=== PATIENT | male | born 1935 | race Caucasian/White ===

== ENCOUNTER 2022-07-11 12:19 | Inpatient (IN) ==
[2022-07-11 13:11] LABS: Basophils # (auto) 0.04 K/uL (0-0.2); Basophils % (auto) 0.3 %; Eosinophils # (auto) 0.01 K/uL (0-0.50); Eosinophils % (auto) 0.1 %; Hematocrit (blood only) 31.3 % (40.1-51.0); Hemoglobin 10.2 g/dl (14.0-18.0); Immature Granulocytes # (auto) 0.06 K/uL (0.00-0.02); Immature Granulocytes % (auto) 0.5 %; Lymphocytes # (auto) 0.74 K/uL (1.2-3.4); Lymphocytes % (auto) 6.4 %; Mean Corpuscular Hemoglobin 30.4 pg (25.0-34.0); Mean Corpuscular Hgb Conc 32.6 g/dL (32.0-36.0); Mean Corpuscular Volume 93.4 fL (80.0-100.0); Mean Platelet Volume 10.4 fL (9.4-12.4); Monocytes # (auto) 1.07 K/uL (0.24-0.82); Monocytes % (auto) 9.3 %; Neutrophils # (auto) 9.62 K/uL (1.4-6.5); Neutrophils % (auto) 83.4 %; Platelet Count 390 K/uL (130-400); RDW Coefficient of Variation 15.6 % (11.5-14.5); RDW Standard Deviation 53.4 fL (36.4-46.3); Red Blood Count 3.35 M/uL (4.63-6.08); White Blood Count 11.54 K/ul (4.8-10.8)
--- NOTE | 2022-07-11 13:20 | Emergency Department Note ---
History of Present Illness General Chief Complaint: Illness Stated Complaint: CHEST PAIN, SOB, COUGH Time Seen by Provider: 07/11/22 12:33 History of Present Illness Provider Complaint: shortness of breath and cough Onset (ago): day(s) (2) Severity: severe Consistency/Duration: + progressively worsening Relieved By: + oxygen Exacerbated By: + exertion and + coughing Associated symptoms: + cough and + chest congestion; no chest pain, no wheezing, no orthopnea, no polyuria, no palpitations, no diaphoresis or no abdominal pain Treatment prior to arrival: oxygen and bronchodilator Related Data Home oxygen amount: none Home Medications Medication Instructions Recorded Confirmed Type alfuzosin 10 mg tablet,extended 10 mg PO DAILY 07/11/22 07/11/22 History release 24 hr allopurinol 100 mg tablet 100 mg PO DAILY 07/11/22 07/11/22 History amlodipine 5 mg tablet 5 mg PO DAILY 07/11/22 07/11/22 History cetirizine 10 mg tablet 10 mg PO DAILY 07/11/22 07/11/22 History clonidine HCl 0.1 mg tablet 0.1 mg PO BID 07/11/22 07/11/22 History ezetimibe 10 mg tablet 10 mg PO DAILY 07/11/22 07/11/22 History lisinopril 40 mg tablet 40 mg PO DAILY 07/11/22 07/11/22 History meclizine 25 mg tablet 25 mg PO TID PRN Dizziness 07/11/22 07/11/22 History metoprolol succinate 50 mg 25 mg PO DAILY 07/11/22 07/11/22 History tablet,extended release 24 hr nitroglycerin 0.4 mg sublingual 0.4 mg sublingual Q5W PRN Chest 07/11/22 07/11/22 History tablet Pain zolpidem 10 mg tablet 10 mg PO HS 07/11/22 07/11/22 History Allergies Allergy/AdvReac Type Severity Reaction Status Date / Time No Known Allergies Allergy Unverified 07/11/22 16:43 Past Med/Surg History Medical History BPH (benign prostatic hyperplasia) CAD (coronary artery disease) HLD (hyperlipidemia) HTN (hypertension) Surgical History H/O knee surgery S/P CABG (coronary artery bypass graft) Family History Mother Alzheimer disease Father Hypertension Social History Smoking Status: Former smoker Age Quit Using Tobacco: 28; Smoking End Date: 50 years ago; Number of Years Since Quit: 50; Hx Alcohol Use: No Hx Substance Use: No Preferred Language: Haitian Communication Ability: Effective Instructor Nurse Required: No Beliefs That Will Affect Care: Restoration Current Living Situation: Spouse Current Living Situation Comment: home with Feels Safe at Home: Yes Safety Concerns: Feels Safe At This Time Assistive Devices: Cane Review of Systems A total of 10 systems reviewed and were otherwise negative Physical Exam Vital Signs: Vital Signs - 24 hr 07/11/22 12:42 07/11/22 13:16 07/11/22 13:00 Temperature 37.3 C Temperature Source Oral Pulse Rate 77 83 78 Pulse Rhythm Regular Regular Pulse Strength Normal Respiratory Rate 20 20 22 Respiratory Effort / Characteristics Spontaneous Access ory Muscle Use Respiratory Depth Normal Respiratory Patter n Regular Blood Pressure 173/73 H Blood Pressure Mila n 106 Blood Pressure Pos ition Lying Pulse Oximetry 95 95 95 Oxygen Delivery Me thod Nasal Cannula Nasal Cannula Nasal Cannula Oxygen Flow Rate 5 5 5 Sepsis Recent Feve r Within 48 Hours No Sepsis New/Unexpla ined Change in Men taty Status No Sepsis Action Take n by Nursing No Action Required 07/11/22 13:15 07/11/22 13:30 07/11/22 13:45 Temperature Temperature Source Pulse Rate 78 77 77 Pulse Rhythm Pulse Strength Respiratory Rate 26 H Respiratory Effort / Characteristics Respiratory Depth Respiratory Patter n Blood Pressure Blood Pressure Mila n Blood Pressure Pos ition Pulse Oximetry 95 95 93 Oxygen Delivery Me thod Nasal Cannula Nasal Cannula Nasal Cannula Oxygen Flow Rate 5 5 5 Sepsis Recent Feve r Within 48 Hours Sepsis New/Unexpla ined Change in Men taty Status Sepsis Action Take n by Nursing 07/11/22 14:00 07/11/22 14:15 07/11/22 14:30 Temperature Temperature Source Pulse Rate 75 74 75 Pulse Rhythm Pulse Strength Respiratory Rate 23 25 H 19 Respiratory Effort / Characteristics Respiratory Depth Respiratory Patter n Blood Pressure Blood Pressure Mila n Blood Pressure Pos ition Pulse Oximetry 95 95 93 Oxygen Delivery Me thod Nasal Cannula Nasal Cannula Nasal Cannula Oxygen Flow Rate 5 5 5 Sepsis Recent Feve r Within 48 Hours Sepsis New/Unexpla ined Change in Men taty Status Sepsis Action Take n by Nursing Physical Exam: Physical Exam GENERAL: He is oriented to person, place, and time. He appears well-developed and well-nourished. He does not appear distressed. HENT: Exam performed. - Head: Normocephalic and atraumatic. - Right Ear: External ear normal. No mastoid tenderness. - Left Ear: External ear normal. No mastoid tenderness. - Mouth/Throat: The oropharynx is clear and moist. No trismus in the jaw. No dental abscesses or uvula swelling. No oropharyngeal exudate or tonsillar abscesses. EYES: Conjunctivae and EOM are normal. Pupils are equal, round, and reactive to light. Right eye exhibits no discharge. Left eye exhibits no discharge. No scleral icterus. NECK: Normal range of motion. Neck supple. No JVD present. No spinous process tenderness present. No carotid bruit present. No rigidity. No tracheal deviation and normal range of motion present. No Brudzinski's sign and no Kernig's sign noted. CV: Normal rate, regular rhythm, normal heart sounds and intact distal pulses. There is no peripheral edema. Palpable radial pulses bue. PULM/CHEST: Rhonchi bilaterally. ABD: The abdomen is soft. Bowel sounds are normal. He has no distension. No mass is present. There is no tenderness. There is no rebound, no guarding, no Sheikh's sign and no tenderness at McBurney's point. Rovsig negative. MUSC/SKEL: Normal range of motion. There is no peripheral edema, tenderness or deformity. LYMPH: No cervical adenopathy. NEURO: He is alert and oriented to person, place, and time. He has normal strength. No cranial nerve deficit or sensory deficit. Coordination and gait normal. GCS eye subscore is 4. GCS verbal subscore is 5. GCS motor subscore is 6. Cerebellar tests wnl. SKIN: Skin is warm and dry. He is not diaphoretic. PSYCH: He has a normal mood and affect. Behavior is normal. Judgment and thought content normal. Course Course 1233: The patient was evaluated in room A4. A complete history and physical exam was performed Cardiac monitoring: An order was placed for continuous cardiac monitoring. The monitor shows a rate of 80 with sinus rhythm Patient was found to be hypoxic on room air. Patient oxygen saturation did remove with supplemental oxygen via nasal cannula. 1440: Vital signs stable on supplemental oxygen. Labs show white blood cell count 11.5 hemoglobin 10.2. ABG shows venous pH of 7.3 venous PCO2 of 41. Creatinine elevated at 1.9. Magnesium 1.5. Troponin 1008.4 proBNP 3806. Chest x-ray shows pulmonary edema and cardiomegaly. Patchy right lung and left basilar airspace opacity favoring alveolar edema. Patient is COVID-positive. Patient was treated with Decadron 6 mg IV push. [facility] Patient currently reporting no chest pain. Administered Medications Discontinued Medications Albuterol (Albut/Ipratrop 3mg/0.5mg Neb 3 Ml Vial) 3 ml NEB NOW STA; Protocol Stop: 07/11/22 16:18 Last Admin: 07/11/22 16:31 Dose: 3 ml Documented By: MEAGHAN Furosemide (Furosemide 40 Mg/4 Ml Vial) 40 mg IV ONE ONE Stop: 07/11/22 16:18 Last Admin: 07/11/22 16:32 Dose: 40 mg Documented By: MEAGHAN Dexamethasone 6 mg/ Syringe 1.5 mls @ 1 mls/min IV ONE ONE Stop: 07/11/22 14:31 Last Admin: 07/11/22 16:14 Dose: 1 mls/min Documented By: MEAGHAN Medical Decision Making Laboratory Data Result diagrams: 07/11/22 12:55 07/11/22 12:55 Lab Results 07/11/22 07/11/22 07/11/22 Range/Units 12:52 12:55 12:55 WBC 11.54 H (4.8-10.8) K/ul RBC 3.35 L (4.63-6.08) M/uL Hgb 10.2 L (14.0-18.0) g/dl Hct 31.3 L (40.1-51.0) % MCV 93.4 (80.0-100.0) fL MCH 30.4 (25.0-34.0) pg MCHC 32.6 (32.0-36.0) g/dL RDW Std Deviation 53.4 H (36.4-46.3) fL RDW Coeff of Ambrose 15.6 H (11.5-14.5) % Plt Count 390 (130-400) K/uL MPV 10.4 (9.4-12.4) fL Immature Gran % (Auto) 0.5 % Neut % (Auto) 83.4 % Lymph % (Auto) 6.4 % Mcdonough % (Auto) 9.3 % Eos % (Auto) 0.1 % Baso % (Auto) 0.3 % Neut # (Auto) 9.62 H (1.4-6.5) K/uL Lymph # (Auto) 0.74 L (1.2-3.4) K/uL Mcdonough # (Auto) 1.07 H (0.24-0.82) K/uL Eos # (Auto) 0.01 (0-0.50) K/uL Baso # (Auto) 0.04 (0-0.2) K/uL Immature Gran # (Auto) 0.06 H (0.00-0.02) K/uL PT 12.4 H (9.0-12.0) Seconds INR 1.2 H (0.9-1.1) APTT 27.1 (21.0-31.0) Seconds PTT Ratio 1.0 VBG pH (7.36-7.41) VBG pCO2 (38-50) mmHg VBG pO2 mmHg VBG HCO3 mmol/L VBG O2 Saturation % VBG Base Excess mEq/L Sodium (136-145) mmol/L Potassium (3.5-5.1) mmol/L Chloride (98-107) mmol/L Carbon Dioxide (21-32) mmol/L Anion Gap (3-11) BUN (6-23) mg/dl Creatinine (0.6-1.4) mg/dl Est Cr Clr Drug Dosing ml/min Est GFR ( Amer) ml/min Est GFR (Non-Af Amer) ml/min BUN/Creatinine Ratio (10-20) Glucose (70-99(Fasting)) mg/dl Calcium (8.5-10.1) mg/dl Magnesium (1.7-2.4) mg/dl Troponin I High Sens (0-20) pg/ml B-Natriuretic Peptide (0-100) pg/ml Procalcitonin (0-0.5) ng/ml SARS-CoV-2 (PCR) POSITIVE A* (Negative) Influenza Type A (PCR) Negative (Neg) Influenza Type B (PCR) Negative (Neg) RSV (RT-PCR) Negative (Neg) 07/11/22 07/11/22 07/11/22 Range/Units 12:55 12:55 13:08 WBC (4.8-10.8) K/ul RBC (4.63-6.08) M/uL Hgb (14.0-18.0) g/dl Hct (40.1-51.0) % MCV (80.0-100.0) fL MCH (25.0-34.0) pg MCHC (32.0-36.0) g/dL RDW Std Deviation (36.4-46.3) fL RDW Coeff of Ambrose (11.5-14.5) % Plt Count (130-400) K/uL MPV (9.4-12.4) fL Immature Gran % (Auto) % Neut % (Auto) % Lymph % (Auto) % Mcdonough % (Auto) % Eos % (Auto) % Baso % (Auto) % Neut # (Auto) (1.4-6.5) K/uL Lymph # (Auto) (1.2-3.4) K/uL Mcdonough # (Auto) (0.24-0.82) K/uL Eos # (Auto) (0-0.50) K/uL Baso # (Auto) (0-0.2) K/uL Immature Gran # (Auto) (0.00-0.02) K/uL PT (9.0-12.0) Seconds INR (0.9-1.1) APTT (21.0-31.0) Seconds PTT Ratio VBG pH 7.30 L (7.36-7.41) VBG pCO2 41 (38-50) mmHg VBG pO2 27 mmHg VBG HCO3 20 mmol/L VBG O2 Saturation < 60.0 % VBG Base Excess -5.9 mEq/L Sodium 141 (136-145) mmol/L Potassium 5.0 (3.5-5.1) mmol/L Chloride 113 H (98-107) mmol/L Carbon Dioxide 19 L (21-32) mmol/L Anion Gap 9 (3-11) BUN 42 H (6-23) mg/dl Creatinine 1.90 H (0.6-1.4) mg/dl Est Cr Clr Drug Dosing 30.5 ml/min Est GFR ( Amer) 35.7 ml/min Est GFR (Non-Af Amer) 30.8 ml/min BUN/Creatinine Ratio 22.1 H (10-20) Glucose 138 H (70-99(Fasting)) mg/dl Calcium 8.8 (8.5-10.1) mg/dl Magnesium 1.5 L (1.7-2.4) mg/dl Troponin I High Sens 1008.4 H* (0-20) pg/ml B-Natriuretic Peptide (0-100) pg/ml Procalcitonin 0.06 (0-0.5) ng/ml SARS-CoV-2 (PCR) (Negative) Influenza Type A (PCR) (Neg) Influenza Type B (PCR) (Neg) RSV (RT-PCR) (Neg) 07/11/22 Range/Units 15:33 WBC (4.8-10.8) K/ul RBC (4.63-6.08) M/uL Hgb (14.0-18.0) g/dl Hct (40.1-51.0) % MCV (80.0-100.0) fL MCH (25.0-34.0) pg MCHC (32.0-36.0) g/dL RDW Std Deviation (36.4-46.3) fL RDW Coeff of Ambrose (11.5-14.5) % Plt Count (130-400) K/uL MPV (9.4-12.4) fL Immature Gran % (Auto) % Neut % (Auto) % Lymph % (Auto) % Mcdonough % (Auto) % Eos % (Auto) % Baso % (Auto) % Neut # (Auto) (1.4-6.5) K/uL Lymph # (Auto) (1.2-3.4) K/uL Mcdonough # (Auto) (0.24-0.82) K/uL Eos # (Auto) (0-0.50) K/uL Baso # (Auto) (0-0.2) K/uL Immature Gran # (Auto) (0.00-0.02) K/uL PT (9.0-12.0) Seconds INR (0.9-1.1) APTT (21.0-31.0) Seconds PTT Ratio VBG pH (7.36-7.41) VBG pCO2 (38-50) mmHg VBG pO2 mmHg VBG HCO3 mmol/L VBG O2 Saturation % VBG Base Excess mEq/L Sodium (136-145) mmol/L Potassium (3.5-5.1) mmol/L Chloride (98-107) mmol/L Carbon Dioxide (21-32) mmol/L Anion Gap (3-11) BUN (6-23) mg/dl Creatinine (0.6-1.4) mg/dl Est Cr Clr Drug Dosing ml/min Est GFR ( Amer) ml/min Est GFR (Non-Af Amer) ml/min BUN/Creatinine Ratio (10-20) Glucose (70-99(Fasting)) mg/dl Calcium (8.5-10.1) mg/dl Magnesium (1.7-2.4) mg/dl Troponin I High Sens (0-20) pg/ml B-Natriuretic Peptide 3806 H (0-100) pg/ml Procalcitonin (0-0.5) ng/ml SARS-CoV-2 (PCR) (Negative) Influenza Type A (PCR) (Neg) Influenza Type B (PCR) (Neg) RSV (RT-PCR) (Neg) Imaging Data Radiologist's Impression: Chest X-Ray 07/11/22 12:52 XR chest 1V portable CLINICAL HISTORY: Cough. Chest pain. Shortness of breath. COMPARISON STUDY: No previous studies for comparison. FINDINGS: There are median sternotomy wires. Moderate cardiomegaly is noted. There is no pneumothorax. Small bilateral pleural effusions are noted. Interstitial thickening represents pulmonary edema. There may be patchy right lung and left basilar airspace opacities. IMPRESSION: 1. Interstitial pulmonary edema with small bilateral pleural effusions. Cardiomegaly. 2. Patchy right lung and left basilar airspace opacity. This could reflect alveolar edema. A superimposed infectious process is considered less likely. Radiographic follow-up is recommended. ACT 112: Negative or not required by law. Electronically signed by: Clinton Cuba M.D. 07/11/2022 1:38 PM ECG Data Interpretation: Sinus rhythm with a rate of 80. IN 264 QRS 148 QTC 479. Left bundle branch block present. sgarbosa negative [facility] Narrative 1233: The patient was evaluated in room A4. A complete history and physical exam was performed Cardiac monitoring: An order was placed for continuous cardiac monitoring. The monitor shows a rate of 80 with sinus rhythm Patient was found to be hypoxic on room air. Patient oxygen saturation did remove with supplemental oxygen via nasal cannula. 1440: Vital signs stable on supplemental oxygen. Labs show white blood cell count 11.5 hemoglobin 10.2. ABG shows venous pH of 7.3 venous PCO2 of 41. C reatinine elevated at 1.9. Magnesium 1.5. Troponin 1008.4 proBNP 3806. Chest x-ray shows pulmonary edema and cardiomegaly. Patchy right lung and left basilar airspace opacity favoring alveolar edema. Patient is COVID-positive. Patient was treated with Decadron 6 mg IV push. [facility]. Patient currently reporting no chest pain. Impression & Plan Hypoxia, COVID-19 Critical Care Time Total Critical Care Time: 40 I have personally spent greater than 40 minutes of critical care time in the direct management of this patient. This includes bedside care, interpretation of diagnostic studies, and testing, discussion with consultants, patient, and family members, and other required patient management activities. This 40 minutes is in excess of all separately billable procedures. Discharge Plan Visit Data Chief Complaint: Illness Stated Complaint: CHEST PAIN, SOB, COUGH ED Provider: Kuldeep Juarez Discharge Problem: Hypoxia, COVID-19 Patient Disposition: Admitted As Inpatient Discharge Instructions Interventions: ED Discharge Assessment Last Done: 07/11/22 16:45
[2022-07-11 13:23] LABS: INR 1.2 (0.9-1.1); Partial Thromboplastin Time 27.1 Seconds (21.0-31.0); Prothrombin Time 12.4 Seconds (9.0-12.0)
--- NOTE | 2022-07-11 13:39 | XRay Report ---
XR chest 1V portable CLINICAL HISTORY: Cough. Chest pain. Shortness of breath. COMPARISON STUDY: No previous studies for comparison. FINDINGS: There are median sternotomy wires. Moderate cardiomegaly is noted. There is no pneumothorax . Small bilateral pleural effusions are noted. Interstitial thickening represents pulmonary edema. Th ere may be patchy right lung and left basilar airspace opacities. IMPRESSION: 1. Interstitial pulmonary edema with small bilateral pleural effusions. Cardiomegaly. 2. Patchy right lung and left basilar airspace opacity. This could reflect alveolar edema. A superimp osed infectious process is considered less likely. Radiographic follow-up is recommended. ACT 112: Negative or not required by law. Electronically signed by: Clinton Cuba M.D. 07/11/2022 1:38 PM
[2022-07-11 13:46] LABS: Base Excess VBG -5.9 mEq/L; HCO3 VBG 20 mmol/L; Oxygen Saturation VBG < 60.0 %; PCO2 VBG 41 mmHg (38-50); PO2 VBG 27 mmHg
[2022-07-11 13:46] LABS: Troponin I High Sensitivity 1008.4 pg/ml (0-20)
[2022-07-11 14:01] LABS: BUN Creatinine Ratio 22.1 (10-20); Calcium 8.8 mg/dl (8.5-10.1); Creatinine Clr Calc Pharmacy 30.5 ml/min; Est GFR (African American) 35.7 ml/min; Est GFR (Non-African American) 30.8 ml/min; Magnesium 1.5 mg/dl (1.7-2.4)
[2022-07-11 14:27] LABS: Influenza A virus by PCR Negative (Neg); Influenza B virus by PCR Negative (Neg); RSV by PCR Negative (Neg)
[2022-07-11 14:29] LABS: SARS CoV2 RNA(COVID-19) InHosp POSITIVE (Negative)
[2022-07-11] MEDS ORDERED: dexAMETHasone 6 MG in SYRINGE 0 ML IV ONE (14:30)
[2022-07-11] MEDS ORDERED: FUROSEMIDE 40 MG/4 ML VIAL IV ONE ×2 (16:17→17:53)
[2022-07-11] MEDS ORDERED: ALBUT/IPRATROP 3MG/0.5MG NEB 3 ML VIAL NEB STA (16:17)
[2022-07-11] MEDS ORDERED: NITROGLYCERIN SL 0.4 MG/TAB TAB SL PRN ×2 (17:00→17:53)
--- NOTE | 2022-07-11 17:00 | History & Physical Report ---
Date of Service July 11, 2022 Assessment & Plan (1) Acute respiratory failure with hypoxia: Plan: Multifactorial COVID-19 pneumonia, acute on chronic heart failure Chest x-raybilateral infiltrates BNP elevated to 3800 Pro-Ravin 0.06 Plan; - continue supplemental oxygen as needed and wean off as tolerated to maintain saturation greater than 92% - started on dexamethasone, remdesivir for COVID-19 infection. Started on ceftriaxone and doxycycline to cover for bacterial pneumonia. Might discontinue if patient improves with other treatment. Started on Lasix 40 mg for volume overload. Will titrate diuretics based on response (2) Elevated troponin: Plan: Patient has a history of CAD status post CABG in 2007 High sensitivity elevation likely due to demand ischemia versus NSTEMI EKG shows sinus rhythm with first-degree AV block and LBBB Plan is to trend troponin, consult cardiology, obtain echo. If troponin trends; will start anticoagulation. Continue aspirin, Lipitor and home beta-lila (3) NEY (acute kidney injury): Plan: Creatinine is 1.90. BUN42 Unsure was the patient baseline is likely cardiorenal syndrome Plan; Obtain urinalysis, urine osmolarity, CK total, renal ultrasound. Obtain BMP in a.m.; will consult nephrology if continues to uptrend. -Lisinopril on hold (4) HTN (hypertension): Plan: Continue on home amlodipine, clonidine and metoprolol. Home lisinopril on hold due to NEY (5) HLD (hyperlipidemia): Plan: Started on Lipitor (6) BPH (benign prostatic hyperplasia): Plan: On alfuzosin Plan DVT Heparin full code History of Present Illness Chief Complaint: Cough for 2 days Primary Care Provider: NO PCP Patient is a 86-year-old male with past medical history of CAD status post CABG in 2007, hypertension, hyperlipidemia, BPH presented to the ED with complaint of cough for past 2 days. Patient is from [place], [place] and here in the [facility] for camping with his son. He noticed increased bouts of coughing since last 2 days. The cough is nonproductive, associated with pleuritic chest pain. He denies fever or chills. He does acknowledge that he has been feeling weak since past 2 days as well. He also reports increasing shortness of breath for past 3 to 4 days as well. The shortness of breath is evident on any form of activity. He also complains of chest pain which is aggravated with coughing is nonradiating. He has taken COVID vaccination along with the booster; his booster was in August 2021. As per the patient, he had coronary artery bypass surgery in 2007 for coronary artery disease. 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 He said he had " Nuclear test" 6-month back and the results were normal. He also has a history of hypertension for which he is on amlodipine, lisinopril, clonidine and metoprolol. He lives with his and is able to carry out all the daily activities by himself. He denies smoking cigarette, drinking alcohol or using any other illicit drugs. On presentation to the ED, patient was afebrile, hypertensive and required 5 L of oxygen via nasal cannula., patient was found to be COVID-positive. Chest x- ray was remarkable for bilateral infiltrates. He is EKG showed left bundle branch block; no previous EKG in the system to compare it with. His initial troponin was 1000. Patient was given IV dexamethasone 6 mg for COVID 19 infection and he was admitted to the floors. Allergies Allergy/AdvReac Type Severity Reaction Status Date / Time No Known Allergies Allergy Unverified 07/11/22 16:43 Home Medications Medication Instructions Recorded Confirmed Type alfuzosin 10 mg tablet,extended 10 mg PO DAILY 07/11/22 07/11/22 History release 24 hr allopurinol 100 mg tablet 100 mg PO DAILY 07/11/22 07/11/22 History amlodipine 5 mg tablet 5 mg PO DAILY 07/11/22 07/11/22 History cetirizine 10 mg tablet 10 mg PO DAILY 07/11/22 07/11/22 History clonidine HCl 0.1 mg tablet 0.1 mg PO BID 07/11/22 07/11/22 History ezetimibe 10 mg tablet 10 mg PO DAILY 07/11/22 07/11/22 History lisinopril 40 mg tablet 40 mg PO DAILY 07/11/22 07/11/22 History meclizine 25 mg tablet 25 mg PO TID PRN Dizziness 07/11/22 07/11/22 History metoprolol succinate 50 mg 25 mg PO DAILY 07/11/22 07/11/22 History tablet,extended release 24 hr nitroglycerin 0.4 mg sublingual 0.4 mg sublingual Q5W PRN Chest 07/11/22 07/11/22 History tablet Pain zolpidem 10 mg tablet 10 mg PO HS 07/11/22 07/11/22 History Past Med/Surg History Medical History (Updated 07/11/22 @ 16:53 by Wilder Pressley MD) BPH (benign prostatic hyperplasia) CAD (coronary artery disease) HLD (hyperlipidemia) HTN (hypertension) Surgical History (Updated 07/11/22 @ 16:48 by Wilder Pressley MD) H/O knee surgery S/P CABG (coronary artery bypass graft) Family History (Updated 07/11/22 @ 16:47 by Wilder Pressley MD) Mother Alzheimer disease Father Hypertension Social History (Updated 07/11/22 @ 16:46 by Wilder Pressley MD) Smoking Status: Former smoker Age Quit Using Tobacco: 28; Number of Years Since Quit: 50; Hx Alcohol Use: No Hx Substance Use: No Feels Safe at Home: Yes Immunizations: Had COVID vaccination in October and November 2020 and booster in 2020 Review of Systems Review of Systems: All systems reviewed & are unremarkable except as noted in Subjective Physical Exam Physical Exam: Constitutional: Alert, oriented x3; in respiratory distress Neck: trachea midline, no thyromegaly normal visual inspection Respiratory: Bilateral crackles up to mid lung henderson Cardiovascular: S1-S2 no murmur appreciated Chest: normal inspection of chest. Scar present Abdomen: Soft, nontender Musculoskeletal: no cyanosis or clubbing, extremities motor strength 5/5 Skin: bilateral 1+ pitting edema present Neurologic: PERRL, EOMI, accommodation nl, no face palsy, no dysarthria CN's II- XI intact bilaterally and moves all extremities Psychiatric: A+Ox3, euthymic affect Lymphatic: no cervical or axillary lymphadenopathy : deferred Results & Data Results & Data ([facility]) Vital Signs (Past 12 Hours) Vital Signs Temp Pulse Resp BP Pulse Ox O2 Del Method O2 Flow Rate 07/11/22 14:30 75 19 93 Nasal Cannula 5 07/11/22 14:15 74 25 H 95 Nasal Cannula 5 07/11/22 14:00 75 23 95 Nasal Cannula 07/11/22 13:45 77 26 H 93 Nasal Cannula 5 07/11/22 13:30 77 95 Nasal Cannula 5 07/11/22 13:15 78 95 Nasal Cannula 5 07/11/22 13:00 78 22 95 Nasal Cannula 5 07/11/22 13:16 83 20 95 Nasal Cannula 5 07/11/22 12:42 37.3 C 77 20 173/73 H 95 Nasal Cannula 5 Laboratory Results Laboratory Results WBC 11.54 K/ul (4.8-10.8) H 07/11/22 12:55 RBC 3.35 M/uL (4.63-6.08) L 07/11/22 12:55 Hgb 10.2 g/dl (14.0-18.0) L 07/11/22 12:55 Hct 31.3 % (40.1-51.0) L 07/11/22 12:55 MCV 93.4 fL (80.0-100.0) 07/11/22 12:55 MCH 30.4 pg (25.0-34.0) 07/11/22 12:55 MCHC 32.6 g/dL (32.0-36.0) 07/11/22 12:55 RDW Std Deviation 53.4 fL (36.4-46.3) H 07/11/22 12:55 RDW Coeff of Ambrose 15.6 % (11.5-14.5) H 07/11/22 12:55 Plt Count 390 K/uL (130-400) 07/11/22 12:55 MPV 10.4 fL (9.4-12.4) 07/11/22 12:55 Immature Gran % (Auto) 0.5 % 07/11/22 12:55 Neut % (Auto) 83.4 % 07/11/22 12:55 Lymph % (Auto) 6.4 % 07/11/22 12:55 [place] % (Auto) 9.3 % 07/11/22 12:55 Eos % (Auto) 0.1 % 07/11/22 12:55 Baso % (Auto) 0.3 % 07/11/22 12:55 Neut # (Auto) 9.62 K/uL (1.4-6.5) H 07/11/22 12:55 Lymph # (Auto) 0.74 K/uL (1.2-3.4) L 07/11/22 12:55 [place]att # (Auto) 1.07 K/uL (0.24-0.82) H 07/11/22 12:55 Eos # (Auto) 0.01 K/uL (0-0.50) 07/11/22 12:55 Baso # (Auto) 0.04 K/uL (0-0.2) 07/11/22 12:55 Immature Gran # (Auto) 0.06 K/uL (0.00-0.02) H 07/11/22 12:55 PT 12.4 Seconds (9.0-12.0) H 07/11/22 12:55 INR 1.2 (0.9-1.1) H 07/11/22 12:55 APTT 27.1 Seconds (21.0-31.0) 07/11/22 12:55 PTT Ratio 1.0 07/11/22 12:55 VBG pH 7.30 (7.36-7.41) L 07/11/22 13:08 VBG pCO2 41 mmHg (38-50) 07/11/22 13:08 VBG pO2 27 mmHg 07/11/22 13:08 VBG HCO3 20 mmol/L 07/11/22 13:08 VBG O2 Saturation < 60.0 % 07/11/22 13:08 VBG Base Excess -5.9 mEq/L 07/11/22 13:08 Sodium 141 mmol/L (136-145) 07/11/22 12:55 Potassium 5.0 mmol/L (3.5-5.1) 07/11/22 12:55 Chloride 113 mmol/L (98-107) H 07/11/22 12:55 Carbon Dioxide 19 mmol/L (21-32) L 07/11/22 12:55 Anion Gap 9 (3-11) 07/11/22 12:55 BUN 42 mg/dl (6-23) H 07/11/22 12:55 Creatinine 1.90 mg/dl (0.6-1.4) H 07/11/22 12:55 Est Cr Clr Drug Dosing 30.5 ml/min 07/11/22 12:55 Est GFR ( Amer) 35.7 ml/min 07/11/22 12:55 Est GFR (Non-Af Amer) 30.8 ml/min 07/11/22 12:55 BUN/Creatinine Ratio 22.1 (10-20) H 07/11/22 12:55 Glucose 138 mg/dl (70-99(Fasting)) H 07/11/22 12:55 Calcium 8.8 mg/dl (8.5-10.1) 07/11/22 12:55 Magnesium 1.5 mg/dl (1.7-2.4) L 07/11/22 12:55 Troponin I High Sens 1008.4 pg/ml (0-20) H* 07/11/22 12:55 B-Natriuretic Peptide 3806 pg/ml (0-100) H 07/11/22 15:33 Procalcitonin 0.06 ng/ml (0-0.5) 07/11/22 12:55 SARS-CoV-2 (PCR) POSITIVE (Negative) A* 07/11/22 12:52 Influenza Type A (PCR) Negative (Neg) 07/11/22 12:52 Influenza Type B (PCR) Negative (Neg) 07/11/22 12:52 RSV (RT-PCR) Negative (Neg) 07/11/22 12:52 Impressions Chest X-Ray 07/11/22 12:52 XR chest 1V portable CLINICAL HISTORY: Cough. Chest pain. Shortness of breath. COMPARISON STUDY: No previous studies for comparison. FINDINGS: There are median sternotomy wires. Moderate cardiomegaly is noted. There is no pneumothorax. Small bilateral pleural effusions are noted. Interstitial thickening represents pulmonary edema. There may be patchy right lung and left basilar airspace opacities. IMPRESSION: 1. Interstitial pulmonary edema with small bilateral pleural effusions. Ca rdiomegaly. 2. Patchy right lung and left basilar airspace opacity. This could reflect alveolar edema. A superimposed infectious process is considered less likely. Radiographic follow-up is recommended. ACT 112: Negative or not required by law. Electronically signed by: Clinton Cuba M.D. 07/11/2022 1:38 PM ECG Additional Comments: Sinus rhythm with first-degree AV block, LBBB present. No previous EKG to compare
[2022-07-11] MEDS ORDERED: HEPARIN SOD (PORCINE) 1000 UNIT/ML IV ONE ×2 (17:53→18:35)
[2022-07-11] MEDS ORDERED: POLYETHYLENE (MIRALAX) 17 GM PACK PO PRN (17:53)
[2022-07-11] MEDS ORDERED: ALUMINUM/MAGNESIUM SUSP 30 ML UDC PO PRN (17:53)
[2022-07-11] MEDS ORDERED: ACETAMINOPHEN 325 MG TAB PO PRN (17:53)
[2022-07-11] MEDS ORDERED: HEPARIN SODIUM/DEXTROSE 25,000 UNITS/500 ML BAG IV SCH (17:53)
[2022-07-11] MEDS ORDERED: MAGNESIUM HYDROXIDE SUSP 30 ML UDC PO PRN (17:53)
[2022-07-11] MEDS ORDERED: ALBUT/IPRATROP 3MG/0.5MG NEB 3 ML VIAL NEB SCH (17:53)
[2022-07-11 18:21] LABS: Alanine Aminotransferase 15 U/L (7-52); Aspartate Aminotransferase 26 U/L (13-39)
--- NOTE | 2022-07-11 18:24 | Ultrasound Report ---
ULTRASOUND KIDNEYS AND BLADDER CLINICAL HISTORY: Acute renal insufficiency. COMPARISON STUDY: No priors. TECHNIQUE: Real-time, grayscale, and color flow sonography of the kidneys and bladder is performed. I mages are reviewed in the transverse and longitudinal planes. FINDINGS: Kidneys: The kidneys demonstrate mild cortical atrophy. Echotexture is normal. The right kidney measu res 11.4 cm in length and the left kidney measures 10.3 cm in length. There is no hydronephrosis. No shadowing renal calculi are identified. Small bilateral renal cysts measure up to 1.5 cm. There is n o sonographic evidence of contour deforming renal mass lesion. No perinephric fluid is identified. Bladder: The bladder wall appears thickened/trabeculated suggesting chronic outlet obstruction. Bilat eral ureteral jets were seen. IMPRESSION: 1. The kidneys demonstrate mild cortical atrophy and are without hydronephrosis. 2. The appearance of the bladder suggests chronic outlet obstruction. ACT 112: Negative or not required by law. Electronically signed by: Henry Coyne M.D. 07/11/2022 6:23 PM
[2022-07-11] MEDS ORDERED: Heparin IV Adult Wt-Based Standard WITH Bolus Protocol IV SCH (18:37)
[2022-07-11] MEDS: ALFUZOSIN HCL 10 MG TAB PO SCH (19:15)
[2022-07-11] MEDS: allopurinoL 100 MG TAB PO SCH (19:16)
[2022-07-11] MEDS: CETIRIZINE HCL 10 MG TABLET PO SCH (19:16)
[2022-07-11] MEDS: amLODIPine BESYLATE 5 MG TAB PO SCH (19:17)
[2022-07-11] MEDS: METOPROLOL SUCC 25MG EXT REL TAB PO SCH (19:18)
[2022-07-11] MEDS ORDERED: REMDESIVIR 200 MG in SODIUM CHLORIDE 0.9% 210 ML IV ONE (19:30)
[2022-07-11] MEDS: HEPARIN SODIUM/DEXTROSE 25,000 UNITS/500 ML BAG IV SCH (19:47)
[2022-07-11] MEDS: DOXYCYCLINE HYCLATE 100 MG CAP PO SCH (21:03)
[2022-07-11] MEDS: cloNIDine HCL 0.1 MG TAB PO SCH (22:24)
[2022-07-11] MEDS: Heparin IV Adult Wt-Based Standard WITH Bolus Protocol IV SCH ×2 (22:42→22:43)
[2022-07-11 22:53] LABS: Appearance Urine Cloudy (Clear); Bacteria Urine Automated Negative (Negative); Bilirubin Urine Negative (Negative); Blood Urine 1+ (Negative); Color Urine Yellow; Glucose Urine UA Negative (Negative); Ketones Urine Negative (Negative); Leukocyte Esterase Urine Trace (Negative); Nitrite Urine Negative (Negative); Protein Urine 2+ (Negative); RBC Urine Automated 0-4 /hpf (0-4); Specific Gravity Urine 1.009 (1.000-1.030); Urobilinogen Urine Negative (Negative)
[2022-07-11 23:08] LABS: Urine Potassium 24.8 mmol/L
[2022-07-11] MEDS: cefTRIAXone SODIUM 2,000 MG in DEXTROSE 5% 50 ML IV SCH (23:13)
[2022-07-12] MEDS: ALBUT/IPRATROP 3MG/0.5MG NEB 3 ML VIAL NEB SCH ×3 (01:28→13:05)
[2022-07-12 02:56] LABS: Basophils # (auto) 0.01 K/uL (0-0.2); Basophils % (auto) 0.1 %; Hematocrit (blood only) 27.6 % (40.1-51.0); Immature Granulocytes # (auto) 0.05 K/uL (0.00-0.02); Immature Granulocytes % (auto) 0.7 %; Lymphocytes % (auto) 7.1 %; Mean Corpuscular Hemoglobin 30.1 pg (25.0-34.0); Mean Corpuscular Hgb Conc 32.6 g/dL (32.0-36.0); Mean Corpuscular Volume 92.3 fL (80.0-100.0); Mean Platelet Volume 10.9 fL (9.4-12.4); Monocytes # (auto) 0.32 K/uL (0.24-0.82); Monocytes % (auto) 4.6 %; Neutrophils # (auto) 6.15 K/uL (1.4-6.5); Neutrophils % (auto) 87.5 %; Platelet Count 310 K/uL (130-400); RDW Coefficient of Variation 15.4 % (11.5-14.5); Red Blood Count 2.99 M/uL (4.63-6.08); White Blood Count 7.03 K/ul (4.8-10.8)
[2022-07-12 03:15] LABS: Albumin Globulin Ratio 1.2 (0.9-2); Albumin Level 3.3 gm/dl (3.4-5.0); BUN Creatinine Ratio 23.4 (10-20); Bilirubin,Total 0.3 mg/dl (0.2-1.0); Calcium 8.2 mg/dl (8.5-10.1); Chol HDL Ratio 2.5 (0-5); Creatinine Clr Calc Pharmacy 28.2 ml/min; Est GFR (African American) 32.6 ml/min; Est GFR (Non-African American) 28.1 ml/min; Globulin 2.7 gm/dl (2.5-4.0); Potassium 4.3 mmol/L (3.5-5.1)
[2022-07-12 03:24] LABS: Partial Thromboplastin Ratio 4.9
[2022-07-12 03:32] LABS: Troponin I High Sensitivity 1480.3 pg/ml (0-20)
--- NOTE | 2022-07-12 05:04 | Electrocardiogram Report ---
Test Reason : Blood Pressure : / mmHG Vent. Rate : 080 BPM Atrial Rate : 080 BPM P-R Int : 264 ms QRS Dur : 148 ms QT Int : 416 ms P-R-T Axes : 102 -35 112 degrees QTc Int : 479 ms Poor data quality, interpretation may be adversely affected Sinus rhythm with 1st degree A-V block Left axis deviation Left bundle branch block Abnormal ECG No previous ECGs available Confirmed by Bereket Schilling ([id number]) on 07/12/2022 5:04:13 AM Referred By: Confirmed By:Bereket Schilling
[2022-07-12] MEDS ORDERED: FUROSEMIDE 40 MG/4 ML VIAL IV ONE (07:43)
[2022-07-12] MEDS: dexAMETHasone 6 MG in SYRINGE 0 ML IV SCH (08:54)
[2022-07-12] MEDS ORDERED: ASPIRIN 81 MG CHEW PO SCH (09:00)
[2022-07-12] MEDS: DOXYCYCLINE HYCLATE 100 MG CAP PO SCH ×2 (09:07→21:05)
[2022-07-12] MEDS: amLODIPine BESYLATE 5 MG TAB PO SCH (09:07)
[2022-07-12] MEDS: cloNIDine HCL 0.1 MG TAB PO SCH ×2 (09:07→21:04)
[2022-07-12] MEDS: ALFUZOSIN HCL 10 MG TAB PO SCH (09:07)
[2022-07-12] MEDS: CETIRIZINE HCL 10 MG TABLET PO SCH (09:08)
[2022-07-12] MEDS: ATORVASTATIN 20 MG TAB PO SCH (09:08)
[2022-07-12] MEDS: ASPIRIN 81 MG ECTAB PO SCH (09:08)
[2022-07-12] MEDS: allopurinoL 100 MG TAB PO SCH (09:08)
[2022-07-12] MEDS: METOPROLOL SUCC 25MG EXT REL TAB PO SCH (09:09)
[2022-07-12 12:07] LABS: Partial Thromboplastin Ratio 2.5
[2022-07-12 12:36] LABS: Partial Thromboplastin Time 68.3 Seconds (21.0-31.0)
[2022-07-12] MEDS: HEPARIN SODIUM/DEXTROSE 25,000 UNITS/500 ML BAG IV SCH (13:08)
--- NOTE | 2022-07-12 13:31 | XRay Report ---
XR chest 1V portable CLINICAL HISTORY: Follow up on pulmonary edema COMPARISON STUDY: Chest radiograph July 11, 2022. FINDINGS: Median sternotomy wires are noted. Moderate cardiomegaly is present. There are small bilate ral pleural effusions. No pneumothorax is present. Interstitial pulmonary edema has slightly improved . Asymmetric right lower lung airspace opacity persists. IMPRESSION: 1. Slight improvement in pulmonary edema. 2. Small bilateral pleural effusions with bibasilar opacities, greater on the right. Radiographic fol low-up to ensure resolution is recommended. ACT 112: Negative or not required by law. Electronically signed by: Clinton Cuba M.D. 07/12/2022 1:29 PM
[2022-07-12] MEDS ORDERED: ALBUT/IPRATROP 3MG/0.5MG NEB 3 ML VIAL NEB PRN (14:01)
--- NOTE | 2022-07-12 14:20 | Hospitalist Progress Note ---
Date of Service July 12, 2022 Assessment & Plan (1) Acute respiratory failure with hypoxia: Plan: Multifactorial COVID-19 pneumonia, acute on chronic heart failure Chest x-raybilateral infiltrates BNP elevated to 3800 Pro-Ravin 0.06 Plan; - continue supplemental oxygen as needed and wean off as tolerated to maintain saturation greater than 92% - on dexamethasone, remdesivir for COVID-19 infection. on ceftriaxone and doxycycline to cover for bacterial pneumonia. DC antibiotics after 5 days Improvement in pulmonary edema with IV Lasix; another dose of 40 mg IV given. (2) Elevated troponin: Plan: Patient has a history of CAD status post CABG in 2007 High sensitivity elevation likely due to demand ischemia versus NSTEMI EKG shows sinus rhythm with first-degree AV block and LBBB Echo shows dilated left ventricle chamber with low normal LV systolic function. EF of 50 to 55% with grade 1 diastolic dysfunction. Plan Continue on heparin drip, aspirin, beta-lila and statin for NSTEMI. We will try to obtain previous records for comparison. Cardiology on board; appreciate recommendation. (3) NEY (acute kidney injury): Plan: Continues slightly increased today to 2.05 Unsure was the patient baseline is likely cardiorenal syndrome Renal ultrasoundno hydronephrosis. CK normal Plan: Continue to monitor kidney function daily. Strict MILTON's. Need prior study for comparison. (4) HTN (hypertension): Plan: Continue on home amlodipine, clonidine and metoprolol. Home lisinopril on hold due to NEY (5) HLD (hyperlipidemia): Plan: Started on Lipitor (6) BPH (benign prostatic hyperplasia): Plan: On alfuzosin Plan DVT Heparin full code Admission and Anticipated Discharge Date Admission Date: July 11, 2022 Subjective Patient seen and examined at bedside. States that he feels much better compared to the presentation. His oxygen requirement has decreased to 2 L/min by nasal cannula from 5 L. No complaints of fever, chills or chest pain. Telemetry shows sinus rhythm with first-degree AV block and LBBB. Review of Systems Review of Systems: All systems reviewed & are unremarkable except as noted in Subjective Physical Exam Physical Exam: Constitutional: Alert, oriented x3; comfortable Neck: trachea midline, no thyromegaly normal visual inspection Respiratory: Bilateral basal crackles present. Cardiovascular: S1-S2 no murmur appreciated Chest: normal inspection of chest. Scar present Abdomen: Soft, nontender Musculoskeletal: no cyanosis or clubbing, extremities motor strength 5/5 Skin: bilateral 1+ pitting edema present Neurologic: PERRL, EOMI, accommodation nl, no face palsy, no dysarthria CN's II- XI intact bilaterally and moves all extremities Psychiatric: A+Ox3, euthymic affect Lymphatic: no cervical or axillary lymphadenopathy : deferred Results & Data Results & Data ([facility]) Vital Signs (Past 12 Hours) Vital Signs Temp Pulse Pulse Resp BP Pulse Ox O2 Del Method 07/12/22 13:05 84 18 96 Nasal Cannula 07/12/22 11:27 36.5 C 64 20 122/66 96 Nasal Cannula 07/12/22 07:00 66 07/12/22 09:00 36.8 C 75 20 159/71 H 94 Nasal Cannula 07/12/22 03:44 36.3 C L 64 19 142/63 H 97 Nasal Cannula O2 Flow Rate 07/12/22 13:05 2 07/12/22 11:27 2 07/12/22 07:00 07/12/22 09:00 2 07/12/22 03:44 2 Laboratory Results Laboratory Results WBC 7.03 K/ul (4.8-10.8) 07/12/22 02:27 RBC 2.99 M/uL (4.63-6.08) L 07/12/22 02:27 Hgb 9.0 g/dl (14.0-18.0) L 07/12/22 02:27 Hct 27.6 % (40.1-51.0) L 07/12/22 02:27 MCV 92.3 fL (80.0-100.0) 07/12/22 02:27 MCH 30.1 pg (25.0-34.0) 07/12/22 02:27 MCHC 32.6 g/dL (32.0-36.0) 07/12/22 02:27 RDW Std Deviation 52.0 fL (36.4-46.3) H 07/12/22 02:27 RDW Coeff of Ambrose 15.4 % (11.5-14.5) H 07/12/22 02:27 Plt Count 310 K/uL (130-400) 07/12/22 02:27 MPV 10.9 fL (9.4-12.4) 07/12/22 02:27 Immature Gran % (Auto) 0.7 % 07/12/22 02:27 Neut % (Auto) 87.5 % 07/12/22 02:27 Lymph % (Auto) 7.1 % 07/12/22 02:27 [place] % (Auto) 4.6 % 07/12/22 02:27 Eos % (Auto) 0.0 % 07/12/22 02:27 Baso % (Auto) 0.1 % 07/12/22 02:27 Neut # (Auto) 6.15 K/uL (1.4-6.5) 07/12/22 02:27 Lymph # (Auto) 0.50 K/uL (1.2-3.4) L 07/12/22 02:27 [place] # (Auto) 0.32 K/uL (0.24-0.82) 07/12/22 02:27 Eos # (Auto) 0.00 K/uL (0-0.50) 07/12/22 02:27 Baso # (Auto) 0.01 K/uL (0-0.2) 07/12/22 02:27 Immature Gran # (Auto) 0.05 K/uL (0.00-0.02) H 07/12/22 02:27 PT 12.4 Seconds (9.0-12.0) H 07/11/22 12:55 INR 1.2 (0.9-1.1) H 07/11/22 12:55 APTT 68.3 Seconds (21.0-31.0) H* 07/12/22 11:20 PTT Ratio 2.5 07/12/22 11:20 VBG pH 7.30 (7.36-7.41) L 07/11/22 13:08 VBG pCO2 41 mmHg (38-50) 07/11/22 13:08 VBG pO2 27 mmHg 07/11/22 13:08 VBG HCO3 20 mmol/L 07/11/22 13:08 VBG O2 Saturation < 60.0 % 07/11/22 13:08 VBG Base Excess -5.9 mEq/L 07/11/22 13:08 Sodium 138 mmol/L (136-145) 07/12/22 02:27 Potassium 4.3 mmol/L (3.5-5.1) 07/12/22 02:27 Chloride 110 mmol/L (98-107) H 07/12/22 02:27 Carbon Dioxide 19 mmol/L (21-32) L 07/12/22 02:27 Anion Gap 9 (3-11) 07/12/22 02:27 BUN 48 mg/dl (6-23) H 07/12/22 02:27 Creatinine 2.05 mg/dl (0.6-1.4) H 07/12/22 02:27 Est Cr Clr Drug Dosing 28.2 ml/min 07/12/22 02:27 Est GFR ( Amer) 32.6 ml/min 07/12/22 02:27 Est GFR (Non-Af Amer) 28.1 ml/min 07/12/22 02:27 BUN/Creatinine Ratio 23.4 (10-20) H 07/12/22 02:27 Glucose 182 mg/dl (70-99(Fasting)) H 07/12/22 02:27 Calcium 8.2 mg/dl (8.5-10.1) L 07/12/22 02:27 Magnesium 1.5 mg/dl (1.7-2.4) L 07/11/22 12:55 Total Bilirubin 0.3 mg/dl (0.2-1.0) 07/12/22 02:27 AST 23 U/L (13-39) 07/12/22 02:27 ALT 12 U/L (7-52) 07/12/22 02:27 Alkaline Phosphatase 61 U/L (34-104) 07/12/22 02:27 Total Creatine Kinase 484 U/L (30-223) H 07/11/22 18:25 Troponin I High Sens 1203.3 pg/ml (0-20) H* 07/12/22 09:32 B-Natriuretic Peptide 3806 pg/ml (0-100) H 07/11/22 15:33 Total Protein 6.0 gm/dl (6.0-8.3) 07/12/22 02:27 Albumin 3.3 gm/dl (3.4-5.0) L 07/12/22 02:27 Globulin 2.7 gm/dl (2.5-4.0) 07/12/22 02:27 Albumin/Globulin Ratio 1.2 (0.9-2) 07/12/22 02:27 Triglycerides 48 mg/dl (0-150) 07/12/22 02:27 Cholesterol 114 mg/dl (0-200) 07/12/22 02:27 LDL Cholesterol, Calc 58 mg/dl 07/12/22 02:27 VLDL Cholesterol, Calc 10 mg/dl (0-30) 07/12/22 02:27 HDL Cholesterol 46 mg/dl 07/12/22 02:27 Cholesterol/HDL Ratio 2.5 (0-5) 07/12/22 02:27 Procalcitonin 0.06 ng/ml (0-0.5) 07/11/22 12:55 Urine Color Yellow 07/11/22 22:38 Urine Appearance Cloudy (Clear) A 07/11/22 22:38 Urine pH 5.0 (4.5-7.5) 07/11/22 22:38 Ur Specific [place] 1.009 (1.000-1.030) 07/11/22 22:38 Urine Protein 2+ (Negative) H 07/11/22 22:38 Urine Glucose (UA) Negative (Negative) 07/11/22 22:38 Urine Ketones Negative (Negative) 07/11/22 22:38 Urine Blood 1+ (Negative) H 07/11/22 22:38 Urine Nitrite Negative (Negative) 07/11/22 22:38 Urine Bilirubin Negative (Negative) 07/11/22 22:38 Urine Urobilinogen Negative (Negative) 07/11/22 22:38 Ur Leukocyte Esterase Trace (Negative) H 07/11/22 22:38 Urine WBC (Auto) 5-10 /hpf (0-5) H 07/11/22 22:38 Urine RBC (Auto) 0-4 /hpf (0-4) 07/11/22 22:38 U Hyaline Cast (Auto) 1-5 /lpf (0-5) 07/11/22 22:38 U Epithel Cells (Auto) 10-20 /lpf (0-5) H 07/11/22 22:38 Urine Bacteria (Auto) Negative (Negative) 07/11/22 22:38 Urine Osmolality 359 mOsm/kg (500-800) L 07/11/22 22:38 Urine Sodium 119 mmol/L 07/11/22 22:38 Urine Potassium 24.8 mmol/L 07/11/22 22:38 Urine Chloride 139 mmol/L 07/11/22 22:38 SARS-CoV-2 (PCR) POSITIVE (Negative) A* 07/11/22 12:52 Influenza Type A (PCR) Negative (Neg) 07/11/22 12:52 Influenza Type B (PCR) Negative (Neg) 07/11/22 12:52 RSV (RT-PCR) Negative (Neg) 07/11/22 12:52 Impressions Renal Ultrasound 07/11/22 15:44 ULTRASOUND KIDNEYS AND BLADDER CLINICAL HISTORY: Acute renal insufficiency. COMPARISON STUDY: No priors. TECHNIQUE: Real-time, grayscale, and color flow sonography of the kidneys and bladder is performed. Images are reviewed in the transverse and longitudinal planes. FINDINGS: Kidneys: The kidneys demonstrate mild cortical atrophy. Echotexture is normal. The right kidney measures 11.4 cm in length and the left kidney measures 10.3 cm in length. There is no hydronephrosis. No shadowing renal calculi are identified. Small bilateral renal cysts measure up to 1.5 cm. There is no sonographic evidence of contour deforming renal mass lesion. No perinephric fluid is identified. Bladder: The bladder wall appears thickened/trabeculated suggesting chronic outlet obstruction. Bilateral ureteral jets were seen. IMPRESSION: 1. The kidneys demonstrate mild cortical atrophy and are without hydronephrosis. 2. The appearance of the bladder suggests chronic outlet obstruction. ACT 112: Negative or not required by law. Electronically signed by: Henry Coyne M.D. 07/11/2022 6:23 PM Chest X-Ray 07/12/22 10:37 XR chest 1V portable CLINICAL HISTORY: Follow up on pulmonary edema COMPARISON STUDY: Chest radiograph July 11, 2022. FINDINGS: Median sternotomy wires are noted. Moderate cardiomegaly is present. There are small bilateral pleural effusions. No pneumothorax is present. Interstitial pulmonary edema has slightly improved. Asymmetric right lower lung airspace opacity persists. IMPRESSION: 1. Slight improvement in pulmonary edema. 2. Small bilateral pleural effusions with bibasilar opacities, greater on the right. Radiographic follow-up to ensure resolution is recommended. ACT 112: Negative or not required by law. Electronically signed by: Clinton Cuba M.D. 07/12/2022 1:29 PM
--- NOTE | 2022-07-12 14:28 | Cardiology Consultation ---
Date of Consultation July 12, 2022 Assessment & Plan (1) Hypoxia: (2) COVID-19: (3) NEY (acute kidney injury): (4) Elevated troponin: (5) Acute respiratory failure with hypoxia: (6) CAD (coronary artery disease): (7) HTN (hypertension): Plan Elevated troponin level in the setting of COVID 19 pneumonia and hypoxic respiratory failure no wall motion abnormalities on echo no sign of active ischemia on ekg do not believe this represents ACS no further cardiac testing necessary will defer treatment of hypoxic respiratory failure to primary team cont outpatient cardiac medications History of Present Illness Reason for Consultation: elevated troponin Requesting Physician: KOURTNEY Attending Physician: Wilder Pressley MD Allergies Allergy/AdvReac Type Severity Reaction Status Date / Time No Known Allergies Allergy Unverified 07/11/22 16:43 Home Medications Medication Instructions Recorded Confirmed Type alfuzosin 10 mg tablet,extended 10 mg PO DAILY 07/11/22 07/11/22 History release 24 hr allopurinol 100 mg tablet 100 mg PO DAILY 07/11/22 07/11/22 History amlodipine 5 mg tablet 5 mg PO DAILY 07/11/22 07/11/22 History cetirizine 10 mg tablet 10 mg PO DAILY 07/11/22 07/11/22 History clonidine HCl 0.1 mg tablet 0.1 mg PO BID 07/11/22 07/11/22 History ezetimibe 10 mg tablet 10 mg PO DAILY 07/11/22 07/11/22 History lisinopril 40 mg tablet 40 mg PO DAILY 07/11/22 07/11/22 History meclizine 25 mg tablet 25 mg PO TID PRN Dizziness 07/11/22 07/11/22 History metoprolol succinate 50 mg 25 mg PO DAILY 07/11/22 07/11/22 History tablet,extended release 24 hr nitroglycerin 0.4 mg sublingual 0.4 mg sublingual Q5W PRN Chest 07/11/22 07/11/22 History tablet Pain zolpidem 10 mg tablet 10 mg PO HS 07/11/22 07/11/22 History Patient History Medical History BPH (benign prostatic hyperplasia) CAD (coronary artery disease) HLD (hyperlipidemia) HTN (hypertension) Surgical History H/O knee surgery S/P CABG (coronary artery bypass graft) Family History Mother Alzheimer disease Father Hypertension Social History Smoking Status: Former smoker Age Quit Using Tobacco: 28; Smoking End Date: 50 years ago; Number of Years Since Quit: 50; Hx Alcohol Use: No Hx Substance Use: No Preferred Language: Sinhala Communication Ability: Effective Demand Generation Manager Required: No Beliefs That Will Affect Care: Faith Current Living Situation: Spouse Current Living Situation Comment: home with Feels Safe at Home: Yes Safety Concerns: Feels Safe At This Time Assistive Devices: Cane Review of Systems Review of Systems: All systems reviewed & are unremarkable except as noted in HPI & below Results & Data ([facility]) Vital Signs (Past 12 Hours) Vital Signs Temp Pulse Pulse Resp BP Pulse Ox O2 Del Method 07/12/22 11:27 36.5 C 64 20 122/66 96 Nasal Cannula 07/12/22 07:00 66 07/12/22 09:00 36.8 C 75 20 159/71 H 94 Nasal Cannula 07/12/22 03:44 36.3 C L 64 19 142/63 H 97 Nasal Cannula 07/12/22 01:29 67 18 99 Nasal Cannula O2 Flow Rate 07/12/22 11:27 2 07/12/22 07:00 07/12/22 09:00 2 07/12/22 03:44 2 07/12/22 01:29 4
[2022-07-12] MEDS: REMDESIVIR 100mg: Days 2-5 IV SCH (19:54)
[2022-07-12] MEDS: cefTRIAXone SODIUM 2,000 MG in DEXTROSE 5% 50 ML IV SCH (21:02)
--- NOTE | 2022-07-12 21:30 | Electrocardiogram Report ---
Test Reason : Blood Pressure : / mmHG Vent. Rate : 068 BPM Atrial Rate : 068 BPM P-R Int : 236 ms QRS Dur : 156 ms QT Int : 470 ms P-R-T Axes : 016 -35 175 degrees QTc Int : 499 ms Sinus rhythm with 1st degree A-V block Left axis deviation Left bundle branch block Abnormal ECG When compared with ECG of 11-JUL-2022 12:41, No significant change Reconfirmed by Bereket Schilling ([id number]) on 07/12/2022 9:30:58 PM Referred By: REFERRED SELF Confirmed By:Bereket Schilling
[2022-07-12] MEDS ORDERED: COUGH DROP (SUGAR FREE) LOZ 24 LOZ/1 BOX BUCCAL PRN (23:25)
[2022-07-13] MEDS: guaiFENesin/DEXTROM SYRUP 100MG/10MG 5ML UDC PO PRN (04:37)
[2022-07-13 07:06] LABS: Basophils # (auto) 0.01 K/uL (0-0.2); Basophils % (auto) 0.1 %; Hematocrit (blood only) 26.3 % (40.1-51.0); Hemoglobin 8.9 g/dl (14.0-18.0); Immature Granulocytes # (auto) 0.09 K/uL (0.00-0.02); Immature Granulocytes % (auto) 0.8 %; Lymphocytes % (auto) 6.3 %; Mean Corpuscular Hemoglobin 30.7 pg (25.0-34.0); Mean Corpuscular Hgb Conc 33.8 g/dL (32.0-36.0); Mean Corpuscular Volume 90.7 fL (80.0-100.0); Mean Platelet Volume 10.9 fL (9.4-12.4); Monocytes # (auto) 0.84 K/uL (0.24-0.82); Monocytes % (auto) 7.5 %; Neutrophils % (auto) 85.3 %; Platelet Count 292 K/uL (130-400); RDW Coefficient of Variation 15.2 % (11.5-14.5); RDW Standard Deviation 50.8 fL (36.4-46.3); White Blood Count 11.14 K/ul (4.8-10.8)
[2022-07-13 08:20] LABS: Albumin Globulin Ratio 1.2 (0.9-2); Albumin Level 3.1 gm/dl (3.4-5.0); BUN Creatinine Ratio 27.1 (10-20); Bilirubin,Total 0.3 mg/dl (0.2-1.0); Calcium 7.9 mg/dl (8.5-10.1); Creatinine Clr Calc Pharmacy 20.6 ml/min; Est GFR (Non-African American) 19.9 ml/min; Globulin 2.5 gm/dl (2.5-4.0); Potassium 4.6 mmol/L (3.5-5.1); Total Protein 5.6 gm/dl (6.0-8.3)
[2022-07-13] MEDS: DOXYCYCLINE HYCLATE 100 MG CAP PO SCH ×2 (08:43→20:09)
[2022-07-13] MEDS: allopurinoL 100 MG TAB PO SCH (08:43)
[2022-07-13] MEDS: CETIRIZINE HCL 10 MG TABLET PO SCH (08:44)
[2022-07-13] MEDS: ASPIRIN 81 MG ECTAB PO SCH (08:44)
[2022-07-13] MEDS: ALFUZOSIN HCL 10 MG TAB PO SCH (08:45)
[2022-07-13] MEDS: METOPROLOL SUCC 25MG EXT REL TAB PO SCH (08:45)
[2022-07-13] MEDS: ATORVASTATIN 20 MG TAB PO SCH (08:46)
[2022-07-13] MEDS: cloNIDine HCL 0.1 MG TAB PO SCH ×2 (08:47→20:14)
[2022-07-13] MEDS: amLODIPine BESYLATE 5 MG TAB PO SCH (08:47)
[2022-07-13] MEDS: dexAMETHasone 6 MG in SYRINGE 0 ML IV SCH (08:54)
--- NOTE | 2022-07-13 11:21 | Hospitalist Progress Note ---
Date of Service July 13, 2022 Assessment & Plan (1) Acute respiratory failure with hypoxia: Plan: Multifactorial COVID-19 pneumonia, acute on chronic heart failure Chest x-raybilateral infiltrates BNP elevated to 3800 Pro-Ravin 0.06 Plan; - continue supplemental oxygen as needed and wean off as tolerated to maintain saturation greater than 92% - on dexamethasone, remdesivir for COVID-19 infection. on ceftriaxone and doxycycline to cover for bacterial pneumonia. DC antibiotics after 5 days Improvement in pulmonary edema with IV Lasix; will hold off on additional diuretics presently. (2) Elevated troponin: Plan: Patient has a history of CAD status post CABG in 2007 High sensitivity elevation likely due to demand ischemia versus NSTEMI EKG shows sinus rhythm with first-degree AV block and LBBB Echo shows dilated left ventricle chamber with low normal LV systolic function. EF of 50 to 55% with grade 1 diastolic dysfunction. Plan Cardiology on board; recommend that the troponin elevation is likely due to COVID-19 pneumonia and hypoxic respiratory failure. We will discontinue heparin drip. Continue on aspirin, Lipitor and metoprolol. (3) NEY (acute kidney injury): Plan: Creatinine uptrending to 2.73 Unsure was the patient baseline is likely cardiorenal syndrome Renal ultrasoundno hydronephrosis. CK normal Plan: We will hold off any additional diuretics today. We will follow-up on renal function tomorrow. If creatinine continues to uptrend; will concern nephrology. Is difficult to get strict MILTON's on him as he has urinary incontinence as well as difficulty maintaining external catheter. (4) HTN (hypertension): Plan: Continue on home amlodipine, clonidine and metoprolol. Home lisinopril on hold due to NEY (5) HLD (hyperlipidemia): Plan: Started on Lipitor (6) BPH (benign prostatic hyperplasia): Plan: On alfuzosin Plan DVT Heparin full code Admission and Anticipated Discharge Date Admission Date: July 11, 2022 Subjective Patient seen and examined at bedside. He states that his shortness of breath is much better; oxygen requirement is down from 5 L/min to 1 L via nasal cannula. Telemetry shows sinus rhythm with first-degree AV block; occasional blocked PACs. Review of Systems Review of Systems: All systems reviewed & are unremarkable except as noted in Subjective Physical Exam Physical Exam: Constitutional: Alert, oriented x3; comfortable Neck: trachea midline, no thyromegaly normal visual inspection Respiratory: Bilateral basal crackles present; improved from before. Cardiovascular: S1-S2 no murmur appreciated Chest: normal inspection of chest. Scar present Abdomen: Soft, nontender Musculoskeletal: no cyanosis or clubbing, extremities motor strength 5/5 Skin: bilateral 1+ pitting edema present Neurologic: PERRL, EOMI, accommodation nl, no face palsy, no dysarthria CN's II- XI intact bilaterally and moves all extremities Psychiatric: A+Ox3, euthymic affect Lymphatic: no cervical or axillary lymphadenopathy : deferred Results & Data Results & Data ([facility]) Vital Signs (Past 12 Hours) Vital Signs Temp Pulse Resp BP Pulse Ox Pulse Ox O2 Del Method 07/13/22 08:00 Nasal Cannula 07/13/22 07:27 36.6 C 62 20 150/66 H 98 Nasal Cannula 07/13/22 00:00 96 07/13/22 03:27 36.6 C 69 20 159/70 H 98 Nasal Cannula O2 Del Method O2 Flow Rate O2 Flow Rate 07/13/22 08:00 1 07/13/22 07:27 1 07/13/22 00:00 Nasal Cannula 1 07/13/22 03:27 1 Laboratory Results Laboratory Results WBC 11.14 K/ul (4.8-10.8) H 07/13/22 06:47 RBC 2.90 M/uL (4.63-6.08) L 07/13/22 06:47 Hgb 8.9 g/dl (14.0-18.0) L 07/13/22 06:47 Hct 26.3 % (40.1-51.0) L 07/13/22 06:47 MCV 90.7 fL (80.0-100.0) 07/13/22 06:47 MCH 30.7 pg (25.0-34.0) 07/13/22 06:47 MCHC 33.8 g/dL (32.0-36.0) 07/13/22 06:47 RDW Std Deviation 50.8 fL (36.4-46.3) H 07/13/22 06:47 RDW Coeff of [place] 15.2 % (11.5-14.5) H 07/13/22 06:47 Plt Count 292 K/uL (130-400) 07/13/22 06:47 MPV 10.9 fL (9.4-12.4) 07/13/22 06:47 Immature Gran % (Auto) 0.8 % 07/13/22 06:47 Neut % (Auto) 85.3 % 07/13/22 06:47 Lymph % (Auto) 6.3 % 07/13/22 06:47 Rains % (Auto) 7.5 % 07/13/22 06:47 Eos % (Auto) 0.0 % 07/13/22 06:47 Baso % (Auto) 0.1 % 07/13/22 06:47 Neut # (Auto) 9.50 K/uL (1.4-6.5) H 07/13/22 06:47 Lymph # (Auto) 0.70 K/uL (1.2-3.4) L 07/13/22 06:47 Rains # (Auto) 0.84 K/uL (0.24-0.82) H 07/13/22 06:47 Eos # (Auto) 0.00 K/uL (0-0.50) 07/13/22 06:47 Baso # (Auto) 0.01 K/uL (0-0.2) 07/13/22 06:47 Immature Gran # (Auto) 0.09 K/uL (0.00-0.02) H 07/13/22 06:47 PT 12.4 Seconds (9.0-12.0) H 07/11/22 12:55 INR 1.2 (0.9-1.1) H 07/11/22 12:55 APTT 68.3 Seconds (21.0-31.0) H* 07/12/22 11:20 PTT Ratio 2.5 07/12/22 11:20 VBG pH 7.30 (7.36-7.41) L 07/11/22 13:08 VBG pCO2 41 mmHg (38-50) 07/11/22 13:08 VBG pO2 27 mmHg 07/11/22 13:08 VBG HCO3 20 mmol/L 07/11/22 13:08 VBG O2 Saturation < 60.0 % 07/11/22 13:08 VBG Base Excess -5.9 mEq/L 07/11/22 13:08 Sodium 137 mmol/L (136-145) 07/13/22 06:47 Potassium 4.6 mmol/L (3.5-5.1) 07/13/22 06:47 Chloride 108 mmol/L (98-107) H 07/13/22 06:47 Carbon Dioxide 19 mmol/L (21-32) L 07/13/22 06:47 Anion Gap 10 (3-11) 07/13/22 06:47 BUN 74 mg/dl (6-23) H D 07/13/22 06:47 Creatinine 2.73 mg/dl (0.6-1.4) H D 07/13/22 06:47 Est Cr Clr Drug Dosing 20.6 ml/min 07/13/22 06:47 Est GFR ( Amer) 23.0 ml/min 07/13/22 06:47 Est GFR (Non-Af Amer) 19.9 ml/min 07/13/22 06:47 BUN/Creatinine Ratio 27.1 (10-20) H 07/13/22 06:47 Glucose 136 mg/dl (70-99(Fasting)) H 07/13/22 06:47 Calcium 7.9 mg/dl (8.5-10.1) L 07/13/22 06:47 Magnesium 1.5 mg/dl (1.7-2.4) L 07/11/22 12:55 Total Bilirubin 0.3 mg/dl (0.2-1.0) 07/13/22 06:47 AST 23 U/L (13-39) 07/13/22 06:47 ALT 13 U/L (7-52) 07/13/22 06:47 Alkaline Phosphatase 57 U/L (34-104) 07/13/22 06:47 Total Creatine Kinase 484 U/L (30-223) H 07/11/22 18:25 Troponin I High Sens 1203.3 pg/ml (0-20) H* 07/12/22 09:32 B-Natriuretic Peptide 3806 pg/ml (0-100) H 07/11/22 15:33 Total Protein 5.6 gm/dl (6.0-8.3) L 07/13/22 06:47 Albumin 3.1 gm/dl (3.4-5.0) L 07/13/22 06:47 Globulin 2.5 gm/dl (2.5-4.0) 07/13/22 06:47 Albumin/Globulin Ratio 1.2 (0.9-2) 07/13/22 06:47 Triglycerides 48 mg/dl (0-150) 07/12/22 02:27 Cholesterol 114 mg/dl (0-200) 07/12/22 02:27 LDL Cholesterol, Calc 58 mg/dl 07/12/22 02:27 VLDL Cholesterol, Calc 10 mg/dl (0-30) 07/12/22 02:27 HDL Cholesterol 46 mg/dl 07/12/22 02:27 Cholesterol/HDL Ratio 2.5 (0-5) 07/12/22 02:27 Procalcitonin 0.06 ng/ml (0-0.5) 07/11/22 12:55 Urine Color Yellow 07/11/22 22:38 Urine Appearance Cloudy (Clear) A 07/11/22 22:38 Urine pH 5.0 (4.5-7.5) 07/11/22 22:38 Ur Specific [place] 1.009 (1.000-1.030) 07/11/22 22:38 Urine Protein 2+ (Negative) H 07/11/22 22:38 Urine Glucose (UA) Negative (Negative) 07/11/22 22:38 Urine Ketones Negative (Negative) 07/11/22 22:38 Urine Blood 1+ (Negative) H 07/11/22 22:38 Urine Nitrite Negative (Negative) 07/11/22 22:38 Urine Bilirubin Negative (Negative) 07/11/22 22:38 Urine Urobilinogen Negative (Negative) 07/11/22 22:38 Ur Leukocyte Esterase Trace (Negative) H 07/11/22 22:38 Urine WBC (Auto) 5-10 /hpf (0-5) H 07/11/22 22:38 Urine RBC (Auto) 0-4 /hpf (0-4) 07/11/22 22:38 U Hyaline Cast (Auto) 1-5 /lpf (0-5) 07/11/22 22:38 U Epithel Cells (Auto) 10-20 /lpf (0-5) H 07/11/22 22:38 Urine Bacteria (Auto) Negative (Negative) 07/11/22 22:38 Urine Osmolality 359 mOsm/kg (500-800) L 07/11/22 22:38 Urine Sodium 119 mmol/L 07/11/22 22:38 Urine Potassium 24.8 mmol/L 07/11/22 22:38 Urine Chloride 139 mmol/L 07/11/22 22:38 SARS-CoV-2 (PCR) POSITIVE (Negative) A* 07/11/22 12:52 Influenza Type A (PCR) Negative (Neg) 07/11/22 12:52 Influenza Type B (PCR) Negative (Neg) 07/11/22 12:52 RSV (RT-PCR) Negative (Neg) 07/11/22 12:52 Impressions Renal Ultrasound 07/11/22 15:44 ULTRASOUND KIDNEYS AND BLADDER CLINICAL HISTORY: Acute renal insufficiency. COMPARISON STUDY: No priors. TECHNIQUE: Real-time, grayscale, and color flow sonography of the kidneys and bladder is performed. Images are reviewed in the transverse and longitudinal planes. FINDINGS: Kidneys: The kidneys demonstrate mild cortical atrophy. Echotexture is normal. The right kidney measures 11.4 cm in length and the left kidney measures 10.3 cm in length. There is no hydronephrosis. No shadowing renal calculi are identified. Small bilateral renal cysts measure up to 1.5 cm. There is no sonographic evidence of contour deforming renal mass lesion. No perinephric fluid is identified. Bladder: The bladder wall appears thickened/trabeculated suggesting chronic outlet obstruction. Bilateral ureteral jets were seen. IMPRESSION: 1. The kidneys demonstrate mild cortical atrophy and are without hydronephrosis. 2. The appearance of the bladder suggests chronic outlet obstruction. ACT 112: Negative or not required by law. Electronically signed by: Henry Coyne M.D. 07/11/2022 6:23 PM Chest X-Ray 07/12/22 10:37 XR chest 1V portable CLINICAL HISTORY: Follow up on pulmonary edema COMPARISON STUDY: Chest radiograph July 11, 2022. FINDINGS: Median sternotomy wires are noted. Moderate cardiomegaly is present. There are small bilateral pleural effusions. No pneumothorax is present. Interstitial pulmonary edema has slightly improved. Asymmetric right lower lung airspace opacity persists. IMPRESSION: 1. Slight improvement in pulmonary edema. 2. Small bilateral pleural effusions with bibasilar opacities, greater on the right. Radiographic follow-up to ensure resolution is recommended. ACT 112: Negative or not required by law. Electronically signed by: Clinton Cuba M.D. 07/12/2022 1:29 PM
--- NOTE | 2022-07-13 14:09 | Cardiology Progress Note ---
Date of Service July 13, 2022 Assessment & Plan (1) Hypoxia: (2) COVID-19: (3) NEY (acute kidney injury): (4) Elevated troponin: (5) Acute respiratory failure with hypoxia: (6) CAD (coronary artery disease): (7) HTN (hypertension): Plan Elevated troponin level in the setting of COVID 19 pneumonia and hypoxic respiratory failure no wall motion abnormalities on echo no sign of active ischemia on ekg do not believe this represents ACS no further cardiac testing necessary will defer treatment of hypoxic respiratory failure to primary team cont outpatient cardiac medications Okay to discharge from a cardiac standpoint. Admission and Anticipated Discharge Date Admission Date: July 11, 2022 Subjective Chart reviewed. Telemetry reviewed. Case discussed with nursing. Physical exam deferred given active COVID-19 infection. Review of Systems Review of Systems: All systems reviewed & are unremarkable except as noted in HPI & below Results & Data ([facility]) Vital Signs (Past 12 Hours) Vital Signs Temp Pulse Resp BP Pulse Ox O2 Del Method O2 Flow Rate 07/13/22 11:48 36.6 C 57 L 19 125/53 L 98 Nasal Cannula 1 07/13/22 08:00 Nasal Cannula 1 07/13/22 07:27 36.6 C 62 20 150/66 H 98 Nasal Cannula 1 07/13/22 03:27 36.6 C 69 20 159/70 H 98 Nasal Cannula 1
[2022-07-13] MEDS: REMDESIVIR 100mg: Days 2-5 IV SCH (20:08)
[2022-07-13] MEDS: ZOLPIDEM TARTRATE 5 MG TAB PO PRN (21:51)
[2022-07-13] MEDS: cefTRIAXone SODIUM 2,000 MG in DEXTROSE 5% 50 ML IV SCH (21:51)
[2022-07-14 07:09] LABS: Basophils # (auto) 0.01 K/uL (0-0.2); Basophils % (auto) 0.1 %; Hematocrit (blood only) 26.5 % (40.1-51.0); Hemoglobin 8.9 g/dl (14.0-18.0); Immature Granulocytes # (auto) 0.06 K/uL (0.00-0.02); Immature Granulocytes % (auto) 0.7 %; Lymphocytes # (auto) 0.69 K/uL (1.2-3.4); Lymphocytes % (auto) 7.6 %; Mean Corpuscular Hemoglobin 30.1 pg (25.0-34.0); Mean Corpuscular Hgb Conc 33.6 g/dL (32.0-36.0); Mean Corpuscular Volume 89.5 fL (80.0-100.0); Mean Platelet Volume 11.1 fL (9.4-12.4); Monocytes # (auto) 0.57 K/uL (0.24-0.82); Monocytes % (auto) 6.2 %; Neutrophils % (auto) 85.4 %; Platelet Count 298 K/uL (130-400); RDW Coefficient of Variation 14.8 % (11.5-14.5); RDW Standard Deviation 48.2 fL (36.4-46.3); Red Blood Count 2.96 M/uL (4.63-6.08); White Blood Count 9.13 K/ul (4.8-10.8)
[2022-07-14 07:30] LABS: Albumin Globulin Ratio 1.3 (0.9-2); BUN Creatinine Ratio 32.5 (10-20); Bilirubin,Total 0.2 mg/dl (0.2-1.0); Calcium 7.7 mg/dl (8.5-10.1); Creatinine Clr Calc Pharmacy 20.6 ml/min; Est GFR (African American) 22.9 ml/min; Est GFR (Non-African American) 19.8 ml/min; Globulin 2.4 gm/dl (2.5-4.0); Potassium 4.8 mmol/L (3.5-5.1); Total Protein 5.4 gm/dl (6.0-8.3)
[2022-07-14] MEDS: ALFUZOSIN HCL 10 MG TAB PO SCH (07:53)
[2022-07-14] MEDS: ASPIRIN 81 MG ECTAB PO SCH (07:54)
[2022-07-14] MEDS: METOPROLOL SUCC 25MG EXT REL TAB PO SCH (07:54)
[2022-07-14] MEDS: DOXYCYCLINE HYCLATE 100 MG CAP PO SCH ×2 (07:54→20:20)
[2022-07-14] MEDS: allopurinoL 100 MG TAB PO SCH (07:55)
[2022-07-14] MEDS: amLODIPine BESYLATE 5 MG TAB PO SCH (07:55)
[2022-07-14] MEDS: ATORVASTATIN 20 MG TAB PO SCH (07:55)
[2022-07-14] MEDS: CETIRIZINE HCL 10 MG TABLET PO SCH (07:55)
[2022-07-14] MEDS: guaiFENesin/DEXTROM SYRUP 100MG/10MG 5ML UDC PO PRN (07:56)
[2022-07-14] MEDS: dexAMETHasone 6 MG in SYRINGE 0 ML IV SCH (08:45)
[2022-07-14] MEDS: cloNIDine HCL 0.1 MG TAB PO SCH ×2 (08:45→20:23)
--- NOTE | 2022-07-14 09:06 | Nephrology Consultation ---
Date of Consultation July 14, 2022 Assessment & Plan (1) NEY (acute kidney injury): - Likley Ischemic/ Toxic ATN 2/ Covid 19, he has pulmonary infiltrates on chest xay , more likley 2. pneumomia than fluid overload. - His functions are going to get worse before getting better as his Scr has not peaked yet. - Conservative management - Agree with holding Lisinopril. - need better BP control,If bp Still above target increase amlodipine to 10 mg - daily weight - no fluid or lasix as his oral intake has improved. - Strict I/O (2) BPH (benign prostatic hyperplasia): - USS is suggestive of bladder outflow obstruction , UOP has been low( although not sure of its accuracy) - BLadder scan post void, it residual > 200 mls , catheterize (3) HTN (hypertension): As above (4) Hypoxia: -2/ Covid 19 - Agree with no Remsidivir, renally does ABX. - as Per primary. History of Present Illness Reason for Consultation: Acute kidney injury? unknown baseline Attending Physician: Wilder Pressley MD History of Present Illness 86-year-old male with PMH of CAD s/p CABG in 2007, hypertension, hyperlipidemia, BPH who presented to the ED with complaint of cough for past 2 days. He was found to be COVID positive, now on Steroids/doxycycline/ Ceftrioxone/ Remsidivir( d/c on 07/13) presently maintaining acceptable saturation on room air. Denies any renal problems in the past but is known to have BPH, USS shows normal sized kidney with no hydronephrosis,but endorses bladder wall thickening with chronic outlet obstruction.He is passing urine ( 350 mls over the lat 24 hr), no sure of its accuracy.Cxray was suggestive of bilateral infiltrates with bilateral pleural effusion . His troponon was raised but echo did not reveal any wall motion abnormalities,but was suggestive of grade 1 diastolic dysfunction with normal EF. Cardiology does not believe it to be ACS and have signed off. Admitting Scr was 1.9 which has risen to 2.74 today. Unknown baseline.He was on lisinopril at home which has been withheld. Blood pressure has been generous and variable with sytolics between 150 -190's. No h/o NSAIDS use, no other OTC.No Hematuria or protenuria in the past. Allergies Allergy/AdvReac Type Severity Reaction Status Date / Time No Known Allergies Allergy Unverified 07/11/22 16:43 Home Medications Medication Instructions Recorded Confirmed Type alfuzosin 10 mg tablet,extended 10 mg PO DAILY 07/11/22 07/11/22 History release 24 hr allopurinol 100 mg tablet 100 mg PO DAILY 07/11/22 07/11/22 History amlodipine 5 mg tablet 5 mg PO DAILY 07/11/22 07/11/22 History cetirizine 10 mg tablet 10 mg PO DAILY 07/11/22 07/11/22 History clonidine HCl 0.1 mg tablet 0.1 mg PO BID 07/11/22 07/11/22 History ezetimibe 10 mg tablet 10 mg PO DAILY 07/11/22 07/11/22 History lisinopril 40 mg tablet 40 mg PO DAILY 07/11/22 07/11/22 History meclizine 25 mg tablet 25 mg PO TID PRN Dizziness 07/11/22 07/11/22 History metoprolol succinate 50 mg 25 mg PO DAILY 07/11/22 07/11/22 History tablet,extended release 24 hr nitroglycerin 0.4 mg sublingual 0.4 mg sublingual Q5W PRN Chest 07/11/22 07/11/22 History tablet Pain zolpidem 10 mg tablet 10 mg PO HS 07/11/22 07/11/22 History Patient History Medical History BPH (benign prostatic hyperplasia) CAD (coronary artery disease) HLD (hyperlipidemia) HTN (hypertension) Surgical History H/O knee surgery S/P CABG (coronary artery bypass graft) Family History Mother Alzheimer disease Father Hypertension Social History Smoking Status: Former smoker Age Quit Using Tobacco: 28; Smoking End Date: 50 years ago; Number of Years Since Quit: 50; Hx Alcohol Use: No Hx Substance Use: No Preferred Language: Barbadian Communication Ability: Effective Systems Checkout Mechanic Required: No Beliefs That Will Affect Care: Hinduism Current Living Situation: Spouse Current Living Situation Comment: home with Feels Safe at Home: Yes Safety Concerns: Feels Safe At This Time Assistive Devices: Cane Review of Systems Review of Systems: No SOB No pedal edema No chest pain, or dysuric symptoms. Physical Exam Physical Exam: Constitutional: Alert, oriented x3; Norespiratory distress Neck: trachea midline, no thyromegaly normal visual inspection Respiratory: Ocassional crackles Cardiovascular: S1-S2 no murmur appreciated Chest: normal inspection of chest. Abdomen: Soft, nontender Musculoskeletal: no cyanosis or clubbing, extremities motor strength 5/5 Skin:No pitting edema present Neurologic: PERRL, EOMI Results & Data ([facility]) Vital Signs (Past 12 Hours) Vital Signs Temp Pulse Pulse Resp BP BP Pulse Ox 07/14/22 08:02 36.5 C 63 14 158/66 H 96 07/14/22 04:05 36.2 C L 55 L 18 139/67 97 07/14/22 00:15 56 L 07/13/22 22:00 36.3 C L 57 L 18 130/52 L 96 07/13/22 22:22 O2 Del Method 07/14/22 08:02 Room Air 07/14/22 04:05 Room Air 07/14/22 00:15 07/13/22 22:00 Room Air 07/13/22 22:22 Room Air Laboratory Results 07/14/22 06:40 07/14/22 06:40
--- NOTE | 2022-07-14 10:41 | Hospitalist Progress Note ---
Date of Service July 14, 2022 Assessment & Plan (1) Acute respiratory failure with hypoxia: Plan: Multifactorial COVID-19 pneumonia, acute on chronic heart failure Chest x-raybilateral infiltrates BNP elevated to 3800 Pro-Ravin 0.06 Plan; -We will discontinue remdesivir in setting of decreased in GFR. Continue on dexamethasone 6 mg for COVID-19 infection Continue on ceftriaxone and doxycycline for coverage of community-acquired pneumonia. He is started on torsemide 40 mg once daily by nephrology. -Supplemental oxygen as needed to keep saturation above 92%. (2) Elevated troponin: Plan: Patient has a history of CAD status post CABG in 2007 High sensitivity elevation likely due to demand ischemia versus NSTEMI EKG shows sinus rhythm with first-degree AV block and LBBB Echo shows dilated left ventricle chamber with low normal LV systolic function. EF of 50 to 55% with grade 1 diastolic dysfunction. Plan Cardiology on board; recommend that the troponin elevation is likely due to COVID-19 pneumonia and hypoxic respiratory failure. Heparin drip discontinued on 07/12. Continue on aspirin, Lipitor and metoprolol. (3) NEY (acute kidney injury): Plan: Creatinine is similar to yesterday's lab. Unsure was the patient baseline is likely cardiorenal syndrome Renal ultrasoundno hydronephrosis. CK normal Plan: Nephrology consulted; NEY is likely due to ischemic/toxic ATN from COVID-19 infection. Continue to hold lisinopril. Torsemide 40 mg once daily added for better blood pressure control. Strict input and output Daily weights. Will obtain his baseline renal function from his PCP. (4) HTN (hypertension): Plan: Continue on home amlodipine, clonidine and metoprolol. Home lisinopril on hold due to NEY. Torsemide 40 mg once daily added. (5) HLD (hyperlipidemia): Plan: Started on Lipitor (6) BPH (benign prostatic hyperplasia): Plan: On alfuzosin Plan DVT Heparin full code Discussed with daughter ([phone]) over the phone regarding treatment plan. Patient is from [facility] and was here for camping. Family need to make arrangements for him to be transported back after medical issue resolved. Admission and Anticipated Discharge Date Admission Date: July 11, 2022 Subjective Patient seen and examined at bedside. He is lying in the bed comfortably; not in any distress. Oxygen was weaned off from 2 L to room air. He continues to have productive cough with yellowish sputum. Telemetry shows sinus rhythm with first-degree AV block; no alarms overnight. Review of Systems Review of Systems: All systems reviewed & are unremarkable except as noted in Subjective Physical Exam Physical Exam: Constitutional: Alert, oriented x3; comfortable Neck: trachea midline, no thyromegaly normal visual inspection Respiratory: Bilateral basal crackles present; improved from before. Cardiovascular: S1-S2 no murmur appreciated Chest: normal inspection of chest. Scar present Abdomen: Soft, nontender Musculoskeletal: no cyanosis or clubbing, extremities motor strength 5/5 Skin: bilateral 1+ pitting edema present Neurologic: PERRL, EOMI, accommodation nl, no face palsy, no dysarthria CN's II-XI intact bilaterally and moves all extremities Psychiatric: A+Ox3, euthymic affect Lymphatic: no cervical or axillary lymphadenopathy : deferred Results & Data Results & Data ([facility]) Vital Signs (Past 12 Hours) Vital Signs Temp Pulse Pulse Resp BP Pulse Ox O2 Del Method 07/14/22 09:56 Room Air 07/14/22 08:02 36.5 C 63 14 158/66 H 96 Room Air 07/14/22 04:05 36.2 C L 55 L 18 139/67 97 Room Air 07/14/22 00:15 56 L Laboratory Results Laboratory Results WBC 9.13 K/ul (4.8-10.8) 07/14/22 06:40 RBC 2.96 M/uL (4.63-6.08) L 07/14/22 06:40 Hgb 8.9 g/dl (14.0-18.0) L 07/14/22 06:40 Hct 26.5 % (40.1-51.0) L 07/14/22 06:40 MCV 89.5 fL (80.0-100.0) 07/14/22 06:40 MCH 30.1 pg (25.0-34.0) 07/14/22 06:40 MCHC 33.6 g/dL (32.0-36.0) 07/14/22 06:40 RDW Std Deviation 48.2 fL (36.4-46.3) H 07/14/22 06:40 RDW Coeff of [place]rose 14.8 % (11.5-14.5) H 07/14/22 06:40 Plt Count 298 K/uL (130-400) 07/14/22 06:40 MPV 11.1 fL (9.4-12.4) 07/14/22 06:40 Immature Gran % (Auto) 0.7 % 07/14/22 06:40 Neut % (Auto) 85.4 % 07/14/22 06:40 Lymph % (Auto) 7.6 % 07/14/22 06:40 [place] % (Auto) 6.2 % 07/14/22 06:40 Eos % (Auto) 0.0 % 07/14/22 06:40 Baso % (Auto) 0.1 % 07/14/22 06:40 Neut # (Auto) 7.80 K/uL (1.4-6.5) H 07/14/22 06:40 Lymph # (Auto) 0.69 K/uL (1.2-3.4) L 07/14/22 06:40 Sampson # (Auto) 0.57 K/uL (0.24-0.82) 07/14/22 06:40 Eos # (Auto) 0.00 K/uL (0-0.50) 07/14/22 06:40 Baso # (Auto) 0.01 K/uL (0-0.2) 07/14/22 06:40 Immature Gran # (Auto) 0.06 K/uL (0.00-0.02) H 07/14/22 06:40 PT 12.4 Seconds (9.0-12.0) H 07/11/22 12:55 INR 1.2 (0.9-1.1) H 07/11/22 12:55 APTT 68.3 Seconds (21.0-31.0) H* 07/12/22 11:20 PTT Ratio 2.5 07/12/22 11:20 VBG pH 7.30 (7.36-7.41) L 07/11/22 13:08 VBG pCO2 41 mmHg (38-50) 07/11/22 13:08 VBG pO2 27 mmHg 07/11/22 13:08 VBG HCO3 20 mmol/L 07/11/22 13:08 VBG O2 Saturation < 60.0 % 07/11/22 13:08 VBG Base Excess -5.9 mEq/L 07/11/22 13:08 Sodium 136 mmol/L (136-145) 07/14/22 06:40 Potassium 4.8 mmol/L (3.5-5.1) 07/14/22 06:40 Chloride 109 mmol/L (98-107) H 07/14/22 06:40 Carbon Dioxide 18 mmol/L (21-32) L 07/14/22 06:40 Anion Gap 9 (3-11) 07/14/22 06:40 BUN 89 mg/dl (6-23) H 07/14/22 06:40 Creatinine 2.74 mg/dl (0.6-1.4) H 07/14/22 06:40 Est Cr Clr Drug Dosing 20.6 ml/min 07/14/22 06:40 Est GFR ( Amer) 22.9 ml/min 07/14/22 06:40 Est GFR (Non-Af Amer) 19.8 ml/min 07/14/22 06:40 BUN/Creatinine Ratio 32.5 (10-20) H 07/14/22 06:40 Glucose 136 mg/dl (70-99(Fasting)) H 07/14/22 06:40 Calcium 7.7 mg/dl (8.5-10.1) L 07/14/22 06:40 Magnesium 1.5 mg/dl (1.7-2.4) L 07/11/22 12:55 Total Bilirubin 0.2 mg/dl (0.2-1.0) 07/14/22 06:40 AST 24 U/L (13-39) 07/14/22 06:40 ALT 17 U/L (7-52) 07/14/22 06:40 Alkaline Phosphatase 55 U/L (34-104) 07/14/22 06:40 Total Creatine Kinase 484 U/L (30-223) H 07/11/22 18:25 Troponin I High Sens 1203.3 pg/ml (0-20) H* 07/12/22 09:32 B-Natriuretic Peptide 3806 pg/ml (0-100) H 07/11/22 15:33 Total Protein 5.4 gm/dl (6.0-8.3) L 07/14/22 06:40 Albumin 3.0 gm/dl (3.4-5.0) L 07/14/22 06:40 Globulin 2.4 gm/dl (2.5-4.0) L 07/14/22 06:40 Albumin/Globulin Ratio 1.3 (0.9-2) 07/14/22 06:40 Triglycerides 48 mg/dl (0-150) 07/12/22 02:27 Cholesterol 114 mg/dl (0-200) 07/12/22 02:27 LDL Cholesterol, Calc 58 mg/dl 07/12/22 02:27 VLDL Cholesterol, Calc 10 mg/dl (0-30) 07/12/22 02:27 HDL Cholesterol 46 mg/dl 07/12/22 02:27 Cholesterol/HDL Ratio 2.5 (0-5) 07/12/22 02:27 Procalcitonin 0.06 ng/ml (0-0.5) 07/11/22 12:55 Urine Color Yellow 07/11/22 22:38 Urine Appearance Cloudy (Clear) A 07/11/22 22:38 Urine pH 5.0 (4.5-7.5) 07/11/22 22:38 Ur Specific [place] 1.009 (1.000-1.030) 07/11/22 22:38 Urine Protein 2+ (Negative) H 07/11/22 22:38 Urine Glucose (UA) Negative (Negative) 07/11/22 22:38 Urine Ketones Negative (Negative) 07/11/22 22:38 Urine Blood 1+ (Negative) H 07/11/22 22:38 Urine Nitrite Negative (Negative) 07/11/22 22:38 Urine Bilirubin Negative (Negative) 07/11/22 22:38 Urine Urobilinogen Negative (Negative) 07/11/22 22:38 Ur Leukocyte Esterase Trace (Negative) H 07/11/22 22:38 Urine WBC (Auto) 5-10 /hpf (0-5) H 07/11/22 22:38 Urine RBC (Auto) 0-4 /hpf (0-4) 07/11/22 22:38 U Hyaline Cast (Auto) 1-5 /lpf (0-5) 07/11/22 22:38 U Epithel Cells (Auto) 10-20 /lpf (0-5) H 07/11/22 22:38 Urine Bacteria (Auto) Negative (Negative) 07/11/22 22:38 Urine Osmolality 359 mOsm/kg (500-800) L 07/11/22 22:38 Urine Sodium 119 mmol/L 07/11/22 22:38 Urine Potassium 24.8 mmol/L 07/11/22 22:38 Urine Chloride 139 mmol/L 07/11/22 22:38 SARS-CoV-2 (PCR) POSITIVE (Negative) A* 07/11/22 12:52 Influenza Type A (PCR) Negative (Neg) 07/11/22 12:52 Influenza Type B (PCR) Negative (Neg) 07/11/22 12:52 RSV (RT-PCR) Negative (Neg) 07/11/22 12:52 Impressions Renal Ultrasound 07/11/22 15:44 ULTRASOUND KIDNEYS AND BLADDER CLINICAL HISTORY: Acute renal insufficiency. COMPARISON STUDY: No priors. TECHNIQUE: Real-time, grayscale, and color flow sonography of the kidneys and bladder is performed. Images are reviewed in the transverse and longitudinal planes. FINDINGS: Kidneys: The kidneys demonstrate mild cortical atrophy. Echotexture is normal. The right kidney measures 11.4 cm in length and the left kidney measures 10.3 cm in length. There is no hydronephrosis. No shadowing renal calculi are identified. Small bilateral renal cysts measure up to 1.5 cm. There is no sonographic evidence of contour deforming renal mass lesion. No perinephric fluid is identified. Bladder: The bladder wall appears thickened/trabeculated suggesting chronic outlet obstruction. Bilateral ureteral jets were seen. IMPRESSION: 1. The kidneys demonstrate mild cortical atrophy and are without hydronephrosis. 2. The appearance of the bladder suggests chronic outlet obstruction. ACT 112: Negative or not required by law. Electronically signed by: Henry Coyne M.D. 07/11/2022 6:23 PM Chest X-Ray 07/12/22 10:37 XR chest 1V portable CLINICAL HISTORY: Follow up on pulmonary edema COMPARISON STUDY: Chest radiograph July 11, 2022. FINDINGS: Median sternotomy wires are noted. Moderate cardiomegaly is present. There are small bilateral pleural effusions. No pneumothorax is present. Interstitial pulmonary edema has slightly improved. Asymmetric right lower lung airspace opacity persists. IMPRESSION: 1. Slight improvement in pulmonary edema. 2. Small bilateral pleural effusions with bibasilar opacities, greater on the right. Radiographic follow-up to ensure resolution is recommended. ACT 112: Negative or not required by law. Electronically signed by: Clinton Cuba M.D. 07/12/2022 1:29 PM
[2022-07-14] MEDS ORDERED: TORSEMIDE 10 MG TAB PO SCH (10:45)
[2022-07-14] MEDS: HEPARIN SOD 5,000 UNIT/0.5 ML VIAL SQ SCH ×2 (15:33→21:22)
[2022-07-14] MEDS: cefTRIAXone SODIUM 2,000 MG in DEXTROSE 5% 50 ML IV SCH (20:19)
[2022-07-14] MEDS: ZOLPIDEM TARTRATE 5 MG TAB PO PRN (21:22)
[2022-07-15] MEDS: HEPARIN SOD 5,000 UNIT/0.5 ML VIAL SQ SCH ×3 (05:57→21:29)
[2022-07-15 07:58] LABS: Hematocrit (blood only) 27.6 % (40.1-51.0); Hemoglobin 9.3 g/dl (14.0-18.0); Immature Granulocytes # (auto) 0.07 K/uL (0.00-0.02); Immature Granulocytes % (auto) 0.8 %; Lymphocytes # (auto) 0.77 K/uL (1.2-3.4); Lymphocytes % (auto) 8.8 %; Mean Corpuscular Hemoglobin 30.3 pg (25.0-34.0); Mean Corpuscular Hgb Conc 33.7 g/dL (32.0-36.0); Mean Corpuscular Volume 89.9 fL (80.0-100.0); Mean Platelet Volume 11.4 fL (9.4-12.4); Monocytes # (auto) 0.54 K/uL (0.24-0.82); Monocytes % (auto) 6.2 %; Neutrophils # (auto) 7.39 K/uL (1.4-6.5); Neutrophils % (auto) 84.2 %; Platelet Count 299 K/uL (130-400); RDW Coefficient of Variation 14.7 % (11.5-14.5); RDW Standard Deviation 47.8 fL (36.4-46.3); Red Blood Count 3.07 M/uL (4.63-6.08); White Blood Count 8.77 K/ul (4.8-10.8)
[2022-07-15 08:24] LABS: Albumin Globulin Ratio 1.2 (0.9-2); BUN Creatinine Ratio 35.1 (10-20); Bilirubin,Total 0.2 mg/dl (0.2-1.0); Calcium 7.6 mg/dl (8.5-10.1); Creatinine Clr Calc Pharmacy 19.8 ml/min; Est GFR (African American) 21.9 ml/min; Est GFR (Non-African American) 18.9 ml/min; Globulin 2.5 gm/dl (2.5-4.0); Potassium 4.6 mmol/L (3.5-5.1); Total Protein 5.5 gm/dl (6.0-8.3)
[2022-07-15] MEDS: METOPROLOL SUCC 25MG EXT REL TAB PO SCH (08:42)
[2022-07-15] MEDS: ATORVASTATIN 20 MG TAB PO SCH (08:42)
[2022-07-15] MEDS: dexAMETHasone 1 MG TAB PO SCH (08:42)
[2022-07-15] MEDS: CETIRIZINE HCL 10 MG TABLET PO SCH (08:42)
[2022-07-15] MEDS: allopurinoL 100 MG TAB PO SCH (08:42)
[2022-07-15] MEDS: ALFUZOSIN HCL 10 MG TAB PO SCH (08:42)
[2022-07-15] MEDS: DOXYCYCLINE HYCLATE 100 MG CAP PO SCH ×2 (08:42→21:28)
[2022-07-15] MEDS: ASPIRIN 81 MG ECTAB PO SCH (08:43)
[2022-07-15] MEDS: amLODIPine BESYLATE 5 MG TAB PO SCH (08:43)
[2022-07-15] MEDS: cloNIDine HCL 0.1 MG TAB PO SCH ×2 (08:43→21:28)
--- NOTE | 2022-07-15 09:23 | Hospitalist Progress Note ---
Date of Service July 15, 2022 Assessment & Plan (1) Acute respiratory failure with hypoxia: Plan: Multifactorial COVID-19 pneumonia, acute on chronic heart failure Chest x-raybilateral infiltrates BNP elevated to 3800 Pro-Ravin 0.06 Plan; - Continue on dexamethasone 6 mg for COVID-19 infection - Continue on ceftriaxone and doxycycline for coverage of community-acquired pneumonia. - Supplemental oxygen as needed to keep saturation above 92%. (2) Elevated troponin: Plan: Patient has a history of CAD status post CABG in 2007 High sensitivity elevation likely due to demand ischemia versus NSTEMI EKG shows sinus rhythm with first-degree AV block and LBBB Echo shows dilated left ventricle chamber with low normal LV systolic function. EF of 50 to 55% with grade 1 diastolic dysfunction. Plan Cardiology on board; recommend that the troponin elevation is likely due to COVID-19 pneumonia and hypoxic respiratory failure. Heparin drip discontinued on 07/12. Continue on aspirin, Lipitor and metoprolol. (3) NEY (acute kidney injury): Plan: Creatinine uptrending. Unsure was the patient baseline is likely cardiorenal syndrome Renal ultrasoundno hydronephrosis. CK normal Plan: Nephrology consulted; NEY is likely due to ischemic/toxic ATN from COVID-19 infection. Continue to hold lisinopril. Amlodipine increased to 10 mg once daily. Strict input and output Daily weights. Will obtain his baseline renal function from his PCP. (4) HTN (hypertension): Plan: Continue on home amlodipine, clonidine and metoprolol. Home lisinopril on hold due to NEY. Amlodipine increased to 10 mg once daily. (5) HLD (hyperlipidemia): Plan: Started on Lipitor (6) BPH (benign prostatic hyperplasia): Plan: On alfuzosin Plan DVT Heparin full code Discussed with daughter ([phone]) over the phone regarding treatment plan. Patient is from [facility] and was here for camping. Family need to make arrangements for him to be transported back after medical issue resolved. Admission and Anticipated Discharge Date Admission Date: July 11, 2022 Subjective Patient seen and examined at bedside. He is sitting up comfortably on the bed; not in distress. He continues to cough; productive in nature. He states that his shortness of breath has improved compared to presentation. No signs of urinary retention on bladder scan. He says he has been leaking a lot and had a diaper placed last night. Telemetry shows sinus rhythm with first-degree block; no alarms Review of Systems Review of Systems: All systems reviewed & are unremarkable except as noted in Subjective Physical Exam Physical Exam: Constitutional: Alert, oriented x3; comfortable Neck: trachea midline, no thyromegaly normal visual inspection Respiratory: Bilateral basal crackles present; improved from before. Cardiovascular: S1-S2 no murmur appreciated Chest: normal inspection of chest. Scar present Abdomen: Soft, nontender Musculoskeletal: no cyanosis or clubbing, extremities motor strength 5/5 Skin: Pitting edema resolved Neurologic: PERRL, EOMI, accommodation nl, no face palsy, no dysarthria CN's II- XI intact bilaterally and moves all extremities Psychiatric: A+Ox3, euthymic affect Lymphatic: no cervical or axillary lymphadenopathy : deferred Results & Data Results & Data ([facility]) Vital Signs (Past 12 Hours) Vital Signs Temp Pulse Pulse Resp BP Pulse Ox O2 Del Method 07/15/22 09:04 Room Air 07/15/22 08:49 36.2 C L 60 16 164/70 H 96 Room Air 07/15/22 07:05 71 07/15/22 03:30 36.3 C L 56 L 20 155/71 H 97 Room Air 07/15/22 00:46 58 L 07/14/22 22:00 36.3 C L 65 20 157/64 H 97 Room Air 07/14/22 21:56 Room Air Laboratory Results Laboratory Results WBC 8.77 K/ul (4.8-10.8) 07/15/22 07:10 RBC 3.07 M/uL (4.63-6.08) L 07/15/22 07:10 Hgb 9.3 g/dl (14.0-18.0) L 07/15/22 07:10 Hct 27.6 % (40.1-51.0) L 07/15/22 07:10 MCV 89.9 fL (80.0-100.0) 07/15/22 07:10 MCH 30.3 pg (25.0-34.0) 07/15/22 07:10 MCHC 33.7 g/dL (32.0-36.0) 07/15/22 07:10 RDW Std Deviation 47.8 fL (36.4-46.3) H 07/15/22 07:10 RDW Coeff of Ambrose 14.7 % (11.5-14.5) H 07/15/22 07:10 Plt Count 299 K/uL (130-400) 07/15/22 07:10 MPV 11.4 fL (9.4-12.4) 07/15/22 07:10 Immature Gran % (Auto) 0.8 % 07/15/22 07:10 Neut % (Auto) 84.2 % 07/15/22 07:10 Lymph % (Auto) 8.8 % 07/15/22 07:10 [place] % (Auto) 6.2 % 07/15/22 07:10 Eos % (Auto) 0.0 % 07/15/22 07:10 Baso % (Auto) 0.0 % 07/15/22 07:10 Neut # (Auto) 7.39 K/uL (1.4-6.5) H 07/15/22 07:10 Lymph # (Auto) 0.77 K/uL (1.2-3.4) L 07/15/22 07:10 [place] # (Auto) 0.54 K/uL (0.24-0.82) 07/15/22 07:10 Eos # (Auto) 0.00 K/uL (0-0.50) 07/15/22 07:10 Baso # (Auto) 0.00 K/uL (0-0.2) 07/15/22 07:10 Immature Gran # (Auto) 0.07 K/uL (0.00-0.02) H 07/15/22 07:10 PT 12.4 Seconds (9.0-12.0) H 07/11/22 12:55 INR 1.2 (0.9-1.1) H 07/11/22 12:55 APTT 68.3 Seconds (21.0-31.0) H* 07/12/22 11:20 PTT Ratio 2.5 07/12/22 11:20 VBG pH 7.30 (7.36-7.41) L 07/11/22 13:08 VBG pCO2 41 mmHg (38-50) 07/11/22 13:08 VBG pO2 27 mmHg 07/11/22 13:08 VBG HCO3 20 mmol/L 07/11/22 13:08 VBG O2 Saturation < 60.0 % 07/11/22 13:08 VBG Base Excess -5.9 mEq/L 07/11/22 13:08 Sodium 134 mmol/L (136-145) L 07/15/22 07:10 Potassium 4.6 mmol/L (3.5-5.1) 07/15/22 07:10 Chloride 106 mmol/L (98-107) 07/15/22 07:10 Carbon Dioxide 19 mmol/L (21-32) L 07/15/22 07:10 Anion Gap 9 (3-11) 07/15/22 07:10 BUN 100 mg/dl (6-23) H 07/15/22 07:10 Creatinine 2.85 mg/dl (0.6-1.4) H 07/15/22 07:10 Est Cr Clr Drug Dosing 19.8 ml/min 07/15/22 07:10 Est GFR ( Amer) 21.9 ml/min 07/15/22 07:10 Est GFR (Non-Af Amer) 18.9 ml/min 07/15/22 07:10 BUN/Creatinine Ratio 35.1 (10-20) H 07/15/22 07:10 Glucose 125 mg/dl (70-99(Fasting)) H 07/15/22 07:10 Calcium 7.6 mg/dl (8.5-10.1) L 07/15/22 07:10 Magnesium 1.5 mg/dl (1.7-2.4) L 07/11/22 12:55 Total Bilirubin 0.2 mg/dl (0.2-1.0) 07/15/22 07:10 AST 22 U/L (13-39) 07/15/22 07:10 ALT 19 U/L (7-52) 07/15/22 07:10 Alkaline Phosphatase 55 U/L (34-104) 07/15/22 07:10 Total Creatine Kinase 484 U/L (30-223) H 07/11/22 18:25 Troponin I High Sens 1203.3 pg/ml (0-20) H* 07/12/22 09:32 B-Natriuretic Peptide 3806 pg/ml (0-100) H 07/11/22 15:33 Total Protein 5.5 gm/dl (6.0-8.3) L 07/15/22 07:10 Albumin 3.0 gm/dl (3.4-5.0) L 07/15/22 07:10 Globulin 2.5 gm/dl (2.5-4.0) 07/15/22 07:10 Albumin/Globulin Ratio 1.2 (0.9-2) 07/15/22 07:10 Triglycerides 48 mg/dl (0-150) 07/12/22 02:27 Cholesterol 114 mg/dl (0-200) 07/12/22 02:27 LDL Cholesterol, Calc 58 mg/dl 07/12/22 02:27 VLDL Cholesterol, Calc 10 mg/dl (0-30) 07/12/22 02:27 HDL Cholesterol 46 mg/dl 07/12/22 02:27 Cholesterol/HDL Ratio 2.5 (0-5) 07/12/22 02:27 Procalcitonin 0.06 ng/ml (0-0.5) 07/11/22 12:55 Urine Color Yellow 07/11/22 22:38 Urine Appearance Cloudy (Clear) A 07/11/22 22:38 Urine pH 5.0 (4.5-7.5) 07/11/22 22:38 Ur Specific [place] 1.009 (1.000-1.030) 07/11/22 22:38 Urine Protein 2+ (Negative) H 07/11/22 22:38 Urine Glucose (UA) Negative (Negative) 07/11/22 22:38 Urine Ketones Negative (Negative) 07/11/22 22:38 Urine Blood 1+ (Negative) H 07/11/22 22:38 Urine Nitrite Negative (Negative) 07/11/22 22:38 Urine Bilirubin Negative (Negative) 07/11/22 22:38 Urine Urobilinogen Negative (Negative) 07/11/22 22:38 Ur Leukocyte Esterase Trace (Negative) H 07/11/22 22:38 Urine WBC (Auto) 5-10 /hpf (0-5) H 07/11/22 22:38 Urine RBC (Auto) 0-4 /hpf (0-4) 07/11/22 22:38 U Hyaline Cast (Auto) 1-5 /lpf (0-5) 07/11/22 22:38 U Epithel Cells (Auto) 10-20 /lpf (0-5) H 07/11/22 22:38 Urine Bacteria (Auto) Negative (Negative) 07/11/22 22:38 Urine Osmolality 359 mOsm/kg (500-800) L 07/11/22 22:38 Urine Sodium 119 mmol/L 07/11/22 22:38 Urine Potassium 24.8 mmol/L 07/11/22 22:38 Urine Chloride 139 mmol/L 07/11/22 22:38 SARS-CoV-2 (PCR) POSITIVE (Negative) A* 07/11/22 12:52 Influenza Type A (PCR) Negative (Neg) 07/11/22 12:52 Influenza Type B (PCR) Negative (Neg) 07/11/22 12:52 RSV (RT-PCR) Negative (Neg) 07/11/22 12:52 Impressions Renal Ultrasound 07/11/22 15:44 ULTRASOUND KIDNEYS AND BLADDER CLINICAL HISTORY: Acute renal insufficiency. COMPARISON STUDY: No priors. TECHNIQUE: Real-time, grayscale, and color flow sonography of the kidneys and bladder is performed. Images are reviewed in the transverse and longitudinal planes. FINDINGS: Kidneys: The kidneys demonstrate mild cortical atrophy. Echotexture is normal. The right kidney measures 11.4 cm in length and the left kidney measures 10.3 cm in length. There is no hydronephrosis. No shadowing renal calculi are identified. Small bilateral renal cysts measure up to 1.5 cm. There is no sonographic evidence of contour deforming renal mass lesion. No perinephric fluid is identified. Bladder: The bladder wall appears thickened/trabeculated suggesting chronic outlet obstruction. Bilateral ureteral jets were seen. IMPRESSION: 1. The kidneys demonstrate mild cortical atrophy and are without hydronephrosis. 2. The appearance of the bladder suggests chronic outlet obstruction. ACT 112: Negative or not required by law. Electronically signed by: Henry Coyne M.D. 07/11/2022 6:23 PM Chest X-Ray 07/12/22 10:37 XR chest 1V portable CLINICAL HISTORY: Follow up on pulmonary edema COMPARISON STUDY: Chest radiograph July 11, 2022. FINDINGS: Median sternotomy wires are noted. Moderate cardiomegaly is present. There are small bilateral pleural effusions. No pneumothorax is present. Interstitial pulmonary edema has slightly improved. Asymmetric right lower lung airspace opacity persists. IMPRESSION: 1. Slight improvement in pulmonary edema. 2. Small bilateral pleural effusions with bibasilar opacities, greater on the right. Radiographic follow-up to ensure resolution is recommended. ACT 112: Negative or not required by law. Electronically signed by: Clinton Cuba M.D. 07/12/2022 1:29 PM
[2022-07-15 13:45] LABS: Appearance Urine Clear (Clear); Bilirubin Urine Negative (Negative); Blood Urine Negative (Negative); Color Urine Yellow; Epithelial Cell Urine Auto 20-30 /lpf (0-5); Glucose Urine UA Negative (Negative); Ketones Urine Negative (Negative); Leukocyte Esterase Urine Trace (Negative); Nitrite Urine Negative (Negative); Protein Urine 2+ (Negative); RBC Urine Automated 0-4 /hpf (0-4); Specific Gravity Urine 1.014 (1.000-1.030); Urobilinogen Urine Negative (Negative)
[2022-07-15 13:56] LABS: Bacteria Urine Automated 1+ (Negative)
--- NOTE | 2022-07-15 14:13 | Nephrology Progress Note ---
Date of Service July 15, 2022 Assessment & Plan (1) NEY (acute kidney injury): Plan: - Likley Ischemic/ Toxic ATN 2/ Covid 19, he has pulmonary infiltrates on chest xay , more likley 2/2 pneumomia than fluid overload. no evidence of obstruction - His functions are going to get worse before getting better as his Scr has not peaked yet. - Conservative management - Agree with holding Lisinopril. - need better BP control >> amlodipine now upped to 10 mg daily; also on clonidine, bb. - no fluid or lasix as his oral intake has improved. - Strict I/O (2) BPH (benign prostatic hyperplasia): Plan: - USS is suggestive of bladder outflow obstruction , UOP has been low( although not sure of its accuracy) - BLadder scan post void, it residual > 200 mls , catheterize; may need urology to place catheter (3) HTN (hypertension): Plan: As above (4) Hypoxia: Plan: -2/ Covid 19 - Agree with no Remsidivir, renally does ABX. - as Per primary. Admission and Anticipated Discharge Date Admission Date: July 11, 2022 Subjective seen on round sthis PM early > no sob; ongoing cough but not bothersome to pt; hungry/eating well; cont to dribble; no gross hematuria some slight dysuria; no edema Review of Systems Review of Systems: All systems reviewed & are unremarkable except as noted in Subjective Physical Exam 2 Constitutional: well developed and well nourished up in chair on RA; NAD Eyes: EOM intact bilaterally ENMT: Ears: no external ear abnormality Nose: no external nose abnormality Mouth: + dry oral mucous membranes Neck: no nuchal rigidity Respiratory: normal respiratory effort and + cough (intermittent, nonproductive) Auscultation: + diminished lung sounds (suzan R base) and + rhonchi (L posterior) Cardiovascular: Rate/Rhythm: regular rate and regular rhythm Heart Sounds: + murmur Extremities: no edema Gastrointestinal (Abdomen): Inspection/Auscultation: normal bowel sounds Percussion/Palpation: abdomen soft; abdomen nontender Musculoskeletal: Extremities: strength 5/5 throughout Skin: no rashes, warm and dry Neurologic: olea, fluent speech, no tremor Psychiatric: Speech: normal rate/rhythm/volume of speech Results & Data ([facility]) Vital Signs (Past 12 Hours) Vital Signs Temp Pulse Pulse Resp BP Pulse Ox O2 Del Method 07/15/22 09:04 Room Air 07/15/22 08:49 36.2 C L 60 16 164/70 H 96 Room Air 07/15/22 07:05 71 07/15/22 03:30 36.3 C L 56 L 20 155/71 H 97 Room Air Laboratory Results 07/15/22 07:10 07/15/22 07:10
[2022-07-15] MEDS: cefTRIAXone SODIUM 2,000 MG in DEXTROSE 5% 50 ML IV SCH (21:24)
[2022-07-15] MEDS: ZOLPIDEM TARTRATE 5 MG TAB PO PRN (21:28)
[2022-07-16] MEDS: HEPARIN SOD 5,000 UNIT/0.5 ML VIAL SQ SCH ×3 (05:48→21:28)
[2022-07-16 08:37] LABS: Basophils # (auto) 0.01 K/uL (0-0.2); Basophils % (auto) 0.1 %; Hematocrit (blood only) 29.8 % (40.1-51.0); Hemoglobin 10.1 g/dl (14.0-18.0); Immature Granulocytes # (auto) 0.12 K/uL (0.00-0.02); Immature Granulocytes % (auto) 1.1 %; Lymphocytes % (auto) 9.3 %; Mean Corpuscular Hgb Conc 33.9 g/dL (32.0-36.0); Mean Corpuscular Volume 88.4 fL (80.0-100.0); Mean Platelet Volume 11.5 fL (9.4-12.4); Monocytes % (auto) 8.4 %; Neutrophils # (auto) 8.73 K/uL (1.4-6.5); Neutrophils % (auto) 81.1 %; Platelet Count 356 K/uL (130-400); RDW Coefficient of Variation 14.5 % (11.5-14.5); RDW Standard Deviation 46.5 fL (36.4-46.3); Red Blood Count 3.37 M/uL (4.63-6.08); White Blood Count 10.76 K/ul (4.8-10.8)
[2022-07-16] MEDS: DOXYCYCLINE HYCLATE 100 MG CAP PO SCH ×2 (08:45→21:28)
[2022-07-16] MEDS: allopurinoL 100 MG TAB PO SCH (08:45)
[2022-07-16] MEDS: ALFUZOSIN HCL 10 MG TAB PO SCH (08:46)
[2022-07-16] MEDS: CETIRIZINE HCL 10 MG TABLET PO SCH (08:46)
[2022-07-16] MEDS: dexAMETHasone 1 MG TAB PO SCH (08:46)
[2022-07-16] MEDS: ATORVASTATIN 20 MG TAB PO SCH (08:46)
[2022-07-16] MEDS: ASPIRIN 81 MG ECTAB PO SCH (08:46)
[2022-07-16] MEDS: METOPROLOL SUCC 25MG EXT REL TAB PO SCH (08:47)
[2022-07-16] MEDS: cloNIDine HCL 0.1 MG TAB PO SCH ×2 (08:47→22:13)
[2022-07-16] MEDS: amLODIPine BESYLATE 5 MG TAB PO SCH (08:47)
[2022-07-16 10:35] LABS: Albumin Globulin Ratio 1.5 (0.9-2); Albumin Level 3.2 gm/dl (3.4-5.0); BUN Creatinine Ratio 34.9 (10-20); Bilirubin,Total 0.3 mg/dl (0.2-1.0); Calcium 7.8 mg/dl (8.5-10.1); Creatinine Clr Calc Pharmacy 19.2 ml/min; Est GFR (African American) 20.7 ml/min; Est GFR (Non-African American) 17.9 ml/min; Globulin 2.2 gm/dl (2.5-4.0); Potassium 4.6 mmol/L (3.5-5.1); Total Protein 5.4 gm/dl (6.0-8.3)
--- NOTE | 2022-07-16 12:30 | Hospitalist Progress Note ---
Date of Service July 16, 2022 Assessment & Plan (1) Acute respiratory failure with hypoxia: Plan: Multifactorial COVID-19 pneumonia, Acute on chronic diastolic CHF Chest x-raybilateral infiltrates; repeat x-ray shows improvement in pulmonary edema. BNP elevated to 3800 Pro-Ravin 0.06 Plan; - Continue on dexamethasone 6 mg for COVID-19 infection - Continue on ceftriaxone and doxycycline for coverage of community-acquired pneumonia. Plan to complete a 7-day course. - Supplemental oxygen as needed to keep saturation above 92%. (2) Elevated troponin: Plan: Patient has a history of CAD status post CABG in 2007 High sensitivity elevation likely due to demand ischemia versus NSTEMI EKG shows sinus rhythm with first-degree AV block and LBBB Echo shows dilated left ventricle chamber with low normal LV systolic function. EF of 50 to 55% with grade 1 diastolic dysfunction. Plan Cardiology on board; recommend that the troponin elevation is likely due to COVID-19 pneumonia and hypoxic respiratory failure. Heparin drip discontinued on 07/12. Continue on aspirin, Lipitor and metoprolol. (3) NEY (acute kidney injury): Plan: Creatinine uptrending. Primary care office was called; baseline creatinine on 07/02 was 1.88. Patient presented with similar creatinine on admission. Unsure was the patient baseline is likely ATN Renal ultrasoundno hydronephrosis. CK normal Plan: Nephrology on board; NEY is likely due to ischemic/toxic ATN from COVID-19 infection. Continue to hold lisinopril. Amlodipine increased to 10 mg once daily. Strict input and output Daily weights. Bladder scan so far has not shown any signs of retention. However he continues to dribble urine due to the history of BPH. (4) HTN (hypertension): Plan: Continue on home amlodipine, clonidine and metoprolol. Home lisinopril on hold due to NEY. Amlodipine increased to 10 mg once daily. (5) HLD (hyperlipidemia): Plan: Started on Lipitor (6) BPH (benign prostatic hyperplasia): Plan: On alfuzosin Plan DVT Heparin full code Discussed with daughter ([phone]) over the phone regarding treatment plan. Patient is from [facility] and was here for camping. Family need to make arrangements for him to be transported back after medical issue resolved. Admission and Anticipated Discharge Date Admission Date: July 11, 2022 Subjective Patient seen and examined at bedside. He is comfortably sitting up on the chair; not in any distress. Telemetry shows sinus rhythm with first-degree AV block Review of Systems Review of Systems: All systems reviewed & are unremarkable except as noted in Subjective Physical Exam Physical Exam: Constitutional: Alert, oriented x3; comfortable Neck: trachea midline, no thyromegaly normal visual inspection Respiratory: Bilateral basal crackles present; more on left side. Cardiovascular: S1-S2 no murmur appreciated Chest: normal inspection of chest. Scar present Abdomen: Soft, nontender Musculoskeletal: no cyanosis or clubbing, extremities motor strength 5/5 Skin: Pitting edema resolved Neurologic: PERRL, EOMI, accommodation nl, no face palsy, no dysarthria CN's II- XI intact bilaterally and moves all extremities Psychiatric: A+Ox3, euthymic affect Lymphatic: no cervical or axillary lymphadenopathy : deferred Results & Data Results & Data ([facility]) Vital Signs (Past 12 Hours) Vital Signs Temp Pulse Pulse Resp BP BP Pulse Ox 07/16/22 09:16 07/16/22 07:54 36.2 C L 63 18 159/82 H 97 07/16/22 07:04 58 L 07/16/22 04:12 36.2 C L 63 18 150/63 H 97 O2 Del Method 07/16/22 09:16 Room Air 07/16/22 07:54 Room Air 07/16/22 07:04 07/16/22 04:12 Room Air Laboratory Results Laboratory Results WBC 10.76 K/ul (4.8-10.8) 07/16/22 07:44 RBC 3.37 M/uL (4.63-6.08) L 07/16/22 07:44 Hgb 10.1 g/dl (14.0-18.0) L 07/16/22 07:44 Hct 29.8 % (40.1-51.0) L 07/16/22 07:44 MCV 88.4 fL (80.0-100.0) 07/16/22 07:44 MCH 30.0 pg (25.0-34.0) 07/16/22 07:44 MCHC 33.9 g/dL (32.0-36.0) 07/16/22 07:44 RDW Std Deviation 46.5 fL (36.4-46.3) H 07/16/22 07:44 RDW Coeff of Ambrose 14.5 % (11.5-14.5) 07/16/22 07:44 Plt Count 356 K/uL (130-400) 07/16/22 07:44 MPV 11.5 fL (9.4-12.4) 07/16/22 07:44 Immature Gran % (Auto) 1.1 % 07/16/22 07:44 Neut % (Auto) 81.1 % 07/16/22 07:44 Lymph % (Auto) 9.3 % 07/16/22 07:44 Howard % (Auto) 8.4 % 07/16/22 07:44 Eos % (Auto) 0.0 % 07/16/22 07:44 Baso % (Auto) 0.1 % 07/16/22 07:44 Neut # (Auto) 8.73 K/uL (1.4-6.5) H 07/16/22 07:44 Lymph # (Auto) 1.00 K/uL (1.2-3.4) L 07/16/22 07:44 Howard # (Auto) 0.90 K/uL (0.24-0.82) H 07/16/22 07:44 Eos # (Auto) 0.00 K/uL (0-0.50) 07/16/22 07:44 Baso # (Auto) 0.01 K/uL (0-0.2) 07/16/22 07:44 Immature Gran # (Auto) 0.12 K/uL (0.00-0.02) H 07/16/22 07:44 PT 12.4 Seconds (9.0-12.0) H 07/11/22 12:55 INR 1.2 (0.9-1.1) H 07/11/22 12:55 APTT 68.3 Seconds (21.0-31.0) H* 07/12/22 11:20 PTT Ratio 2.5 07/12/22 11:20 VBG pH 7.30 (7.36-7.41) L 07/11/22 13:08 VBG pCO2 41 mmHg (38-50) 07/11/22 13:08 VBG pO2 27 mmHg 07/11/22 13:08 VBG HCO3 20 mmol/L 07/11/22 13:08 VBG O2 Saturation < 60.0 % 07/11/22 13:08 VBG Base Excess -5.9 mEq/L 07/11/22 13:08 Sodium 135 mmol/L (136-145) L 07/16/22 07:44 Potassium 4.6 mmol/L (3.5-5.1) 07/16/22 07:44 Chloride 107 mmol/L (98-107) 07/16/22 07:44 Carbon Dioxide 17 mmol/L (21-32) L 07/16/22 07:44 Anion Gap 11 (3-11) 07/16/22 07:44 BUN 104 mg/dl (6-23) H 07/16/22 07:44 Creatinine 2.98 mg/dl (0.6-1.4) H 07/16/22 07:44 Est Cr Clr Drug Dosing 19.2 ml/min 07/16/22 07:44 Est GFR ( Amer) 20.7 ml/min 07/16/22 07:44 Est GFR (Non-Af Amer) 17.9 ml/min 07/16/22 07:44 BUN/Creatinine Ratio 34.9 (10-20) H 07/16/22 07:44 Glucose 114 mg/dl (70-99(Fasting)) H 07/16/22 07:44 Calcium 7.8 mg/dl (8.5-10.1) L 07/16/22 07:44 Magnesium 1.5 mg/dl (1.7-2.4) L 07/11/22 12:55 Total Bilirubin 0.3 mg/dl (0.2-1.0) 07/16/22 07:44 AST 21 U/L (13-39) 07/16/22 07:44 ALT 21 U/L (7-52) 07/16/22 07:44 Alkaline Phosphatase 58 U/L (34-104) 07/16/22 07:44 Total Creatine Kinase 484 U/L (30-223) H 07/11/22 18:25 Troponin I High Sens 1203.3 pg/ml (0-20) H* 07/12/22 09:32 B-Natriuretic Peptide 3806 pg/ml (0-100) H 07/11/22 15:33 Total Protein 5.4 gm/dl (6.0-8.3) L 07/16/22 07:44 Albumin 3.2 gm/dl (3.4-5.0) L 07/16/22 07:44 Globulin 2.2 gm/dl (2.5-4.0) L 07/16/22 07:44 Albumin/Globulin Ratio 1.5 (0.9-2) 07/16/22 07:44 Triglycerides 48 mg/dl (0-150) 07/12/22 02:27 Cholesterol 114 mg/dl (0-200) 07/12/22 02:27 LDL Cholesterol, Calc 58 mg/dl 07/12/22 02:27 VLDL Cholesterol, Calc 10 mg/dl (0-30) 07/12/22 02:27 HDL Cholesterol 46 mg/dl 07/12/22 02:27 Cholesterol/HDL Ratio 2.5 (0-5) 07/12/22 02:27 Procalcitonin 0.06 ng/ml (0-0.5) 07/11/22 12:55 Urine Color Yellow 07/15/22 13:25 Urine Appearance Clear (Clear) 07/15/22 13:25 Urine pH 5.0 (4.5-7.5) 07/15/22 13:25 Ur Specific [place] 1.014 (1.000-1.030) 07/15/22 13:25 Urine Protein 2+ (Negative) H 07/15/22 13:25 Urine Glucose (UA) Negative (Negative) 07/15/22 13:25 Urine Ketones Negative (Negative) 07/15/22 13:25 Urine Blood Negative (Negative) 07/15/22 13:25 Urine Nitrite Negative (Negative) 07/15/22 13:25 Urine Bilirubin Negative (Negative) 07/15/22 13:25 Urine Urobilinogen Negative (Negative) 07/15/22 13:25 Ur Leukocyte Esterase Trace (Negative) H 07/15/22 13:25 Urine WBC (Auto) 10-30 /hpf (0-5) H 07/15/22 13:25 Urine RBC (Auto) 0-4 /hpf (0-4) 07/15/22 13:25 U Hyaline Cast (Auto) 1-5 /lpf (0-5) 07/15/22 13:25 U Epithel Cells (Auto) 20-30 /lpf (0-5) H 07/15/22 13:25 Urine Bacteria (Auto) 1+ (Negative) H 07/15/22 13:25 Urine Yeast Not Reportable 07/15/22 13:25 Urine Osmolality 359 mOsm/kg (500-800) L 07/11/22 22:38 Urine Sodium 119 mmol/L 07/11/22 22:38 Urine Potassium 24.8 mmol/L 07/11/22 22:38 Urine Chloride 139 mmol/L 07/11/22 22:38 SARS-CoV-2 (PCR) POSITIVE (Negative) A* 07/11/22 12:52 Influenza Type A (PCR) Negative (Neg) 07/11/22 12:52 Influenza Type B (PCR) Negative (Neg) 07/11/22 12:52 RSV (RT-PCR) Negative (Neg) 07/11/22 12:52 Impressions Renal Ultrasound 07/11/22 15:44 ULTRASOUND KIDNEYS AND BLADDER CLINICAL HISTORY: Acute renal insufficiency. COMPARISON STUDY: No priors. TECHNIQUE: Real-time, grayscale, and color flow sonography of the kidneys and bladder is performed. Images are reviewed in the transverse and longitudinal planes. FINDINGS: Kidneys: The kidneys demonstrate mild cortical atrophy. Echotexture is normal. The right kidney measures 11.4 cm in length and the left kidney measures 10.3 cm in length. There is no hydronephrosis. No shadowing renal calculi are identified. Small bilateral renal cysts measure up to 1.5 cm. There is no sonographic evidence of contour deforming renal mass lesion. No perinephric fluid is identified. Bladder: The bladder wall appears thickened/trabeculated suggesting chronic outlet obstruction. Bilateral ureteral jets were seen. IMPRESSION: 1. The kidneys demonstrate mild cortical atrophy and are without hydronephrosis. 2. The appearance of the bladder suggests chronic outlet obstruction. ACT 112: Negative or not required by law. Electronically signed by: Henry Coyne M.D. 07/11/2022 6:23 PM Chest X-Ray 07/12/22 10:37 XR chest 1V portable CLINICAL HISTORY: Follow up on pulmonary edema COMPARISON STUDY: Chest radiograph July 11, 2022. FINDINGS: Median sternotomy wires are noted. Moderate cardiomegaly is present. There are small bilateral pleural effusions. No pneumothorax is present. Interstitial pulmonary edema has slightly improved. Asymmetric right lower lung airspace opacity persists. IMPRESSION: 1. Slight improvement in pulmonary edema. 2. Small bilateral pleural effusions with bibasilar opacities, greater on the right. Radiographic follow-up to ensure resolution is recommended. ACT 112: Negative or not required by law. Electronically signed by: Clinton Cuba M.D. 07/12/2022 1:29 PM
--- NOTE | 2022-07-16 13:23 | Nephrology Progress Note ---
Date of Service July 16, 2022 Assessment & Plan (1) NEY (acute kidney injury): Plan: - Likley Ischemic/ Toxic ATN 2/ Covid 19, he has pulmonary infiltrates on chest xay , more likley 2/2 pneumomia than fluid overload. no evidence of obstruction. creatinine on 07/02/22 was 1.9 per hospitalist d/w PCP. - renal function appears to be nearing plateau - Conservative management - Agree with holding Lisinopril. - need better BP control >> amlodipine now upped to 10 mg daily; also on clonidine, bb. will try hydralazine 25 mg bid as tolerated - no fluid or lasix as his oral intake has improved. -if breathing worsens further, low threshold for XR - Strict I/O Care coordinated w/ Dr Pressley (2) BPH (benign prostatic hyperplasia): Plan: - USS is suggestive of bladder outflow obstruction , UOP has been low( although not sure of its accuracy) - BLadder scan post void, it residual > 200 mls , catheterize; may need urology to place catheter (3) HTN (hypertension): Plan: As above (4) Hypoxia: Plan: -2/ Covid 19 - Agree with no Remsidivir, renally dose ABX. - as Per primary. Admission and Anticipated Discharge Date Admission Date: July 11, 2022 Subjective moreanxious today about d/c dispo, mostly he states for how his family is doing. no sob per pt; ongoign dribbling urine - tells me these voiding sx are per routine; no edema; tolerating po Review of Systems Review of Systems: All systems reviewed & are unremarkable except as noted in Subjective Physical Exam Constitutional: well developed and well nourished on RA Eyes: EOM intact bilaterally ENMT: Ears: no external ear abnormality Nose: no external nose abnormality Mouth: + dry oral mucous membranes Neck: no nuchal rigidity Respiratory: normal respiratory effort, + labored breathing (after talking for 3 minutes approx), + cough (intermittent, nonproductive) and able to speak in complete sentences Auscultation: + diminished lung sounds (suzan L base) and + rhonchi (L posterior) Cardiovascular: Rate/Rhythm: regular rate and regular rhythm Heart Sounds: + murmur Extremities: no edema Gastrointestinal (Abdomen): Inspection/Auscultation: normal bowel sounds Percussion/Palpation: abdomen soft; abdomen nontender Musculoskeletal: Extremities: strength 5/5 throughout Skin: no rashes, warm and dry Neurologic: olea, fluent speech, no tremor Psychiatric: Speech: normal rate/rhythm/volume of speech Results & Data [facility]) Vital Signs (Past 12 Hours) Vital Signs Temp Pulse Pulse Resp BP BP Pulse Ox 07/16/22 11:52 36.2 C L 66 18 164/67 H 96 07/16/22 09:16 07/16/22 07:54 36.2 C L 63 18 159/82 H 97 07/16/22 07:04 58 L 07/16/22 04:12 36.2 C L 63 18 150/63 H 97 O2 Del Method 07/16/22 11:52 Room Air 07/16/22 09:16 Room Air 07/16/22 07:54 Room Air 07/16/22 07:04 07/16/22 04:12 Room Air Laboratory Results 07/16/22 07:44 07/16/22 07:44
[2022-07-16] MEDS: hydrALAZINE HCL 25 MG TAB PO SCH ×2 (14:25→21:27)
[2022-07-16] MEDS: cefTRIAXone SODIUM 2,000 MG in DEXTROSE 5% 50 ML IV SCH (21:34)
[2022-07-16] MEDS: ZOLPIDEM TARTRATE 5 MG TAB PO PRN (22:13)
[2022-07-17] MEDS: HEPARIN SOD 5,000 UNIT/0.5 ML VIAL SQ SCH ×3 (06:10→22:00)
[2022-07-17 07:36] LABS: Basophils # (auto) 0.02 K/uL (0-0.2); Basophils % (auto) 0.2 %; Hemoglobin 9.5 g/dl (14.0-18.0); Immature Granulocytes # (auto) 0.16 K/uL (0.00-0.02); Immature Granulocytes % (auto) 1.6 %; Lymphocytes # (auto) 0.81 K/uL (1.2-3.4); Lymphocytes % (auto) 8.2 %; Mean Corpuscular Hgb Conc 33.9 g/dL (32.0-36.0); Mean Corpuscular Volume 88.3 fL (80.0-100.0); Mean Platelet Volume 11.2 fL (9.4-12.4); Monocytes # (auto) 0.77 K/uL (0.24-0.82); Monocytes % (auto) 7.8 %; Neutrophils # (auto) 8.07 K/uL (1.4-6.5); Neutrophils % (auto) 82.2 %; Platelet Count 332 K/uL (130-400); RDW Coefficient of Variation 14.6 % (11.5-14.5); RDW Standard Deviation 47.4 fL (36.4-46.3); Red Blood Count 3.17 M/uL (4.63-6.08); White Blood Count 9.83 K/ul (4.8-10.8)
[2022-07-17 08:05] LABS: BUN Creatinine Ratio 36.2 (10-20); Calcium 7.7 mg/dl (8.5-10.1); Creatinine Clr Calc Pharmacy 19.1 ml/min; Est GFR (African American) 20.7 ml/min; Est GFR (Non-African American) 17.9 ml/min; Potassium 4.8 mmol/L (3.5-5.1)
[2022-07-17] MEDS: DOXYCYCLINE HYCLATE 100 MG CAP PO SCH ×2 (08:13→21:59)
[2022-07-17] MEDS: ASPIRIN 81 MG ECTAB PO SCH (08:14)
[2022-07-17] MEDS: ALFUZOSIN HCL 10 MG TAB PO SCH (08:14)
[2022-07-17] MEDS: cloNIDine HCL 0.1 MG TAB PO SCH ×2 (08:15→22:00)
[2022-07-17] MEDS: hydrALAZINE HCL 25 MG TAB PO SCH (08:15)
[2022-07-17] MEDS: CETIRIZINE HCL 10 MG TABLET PO SCH (08:15)
[2022-07-17] MEDS: amLODIPine BESYLATE 5 MG TAB PO SCH (08:15)
[2022-07-17] MEDS: allopurinoL 100 MG TAB PO SCH (08:15)
[2022-07-17] MEDS: METOPROLOL SUCC 25MG EXT REL TAB PO SCH (08:15)
[2022-07-17] MEDS: dexAMETHasone 1 MG TAB PO SCH (08:15)
[2022-07-17] MEDS: ATORVASTATIN 20 MG TAB PO SCH (08:16)
[2022-07-17] MEDS: guaiFENesin/DEXTROM SYRUP 100MG/10MG 5ML UDC PO PRN (08:16)
--- NOTE | 2022-07-17 09:45 | Nephrology Progress Note ---
Date of Service July 17, 2022 Assessment & Plan (1) NEY (acute kidney injury): Plan: - Likely Ischemic/ Toxic ATN 2/ Covid 19, he has pulmonary infiltrates on chest xay , more likley 2/2 pneumomia than fluid overload. no evidence of obstruction. creatinine on 07/02/22 was 1.9 per hospitalist d/w PCP. - renal function plateau'd now x 3 days; significant presume metabolic acidosis w/o anion gap ? cause <> will monitor; no ABG indicated for now - Conservative management - Agree with holding Lisinopril. - need better BP control >> amlodipine now upped to 10 mg daily; also on clonidine, bb. on 07/16 started hydralazine 25 mg bid as tolerated > will increase to 50 mg bid 07/17 - no fluid or lasix as his oral intake has improved. -if breathing worsens further, low threshold for XR - Strict I/O >if very close f/u can ensured, he could be d/c home today or tomorrow though he is still very dyspneic w/ activity -would need bmp Friday AM then q Fri/ until renal function improving to be followed by PCP -recommend establishing with local press assistant -hold lisinopril at d/c until renal function improves -sounds like lower urinary tract sx at baseline - defer to pt/PCP on next urology f/u -needs to see PCP w/in week of hospital d/c for bp check and overall exam Care coordinated w/ Dr Kidd (2) BPH (benign prostatic hyperplasia): Plan: - USS is suggestive of bladder outflow obstruction , UOP has been low( although not sure of its accuracy) - BLadder scan post void, it residual > 200 mls , catheterize; may need urology to place catheter (3) HTN (hypertension): Plan: As above (4) Hypoxia: Plan: -2/ Covid 19 - Agree with no Remsidivir, renally dose ABX. - as Per primary. Admission and Anticipated Discharge Date Admission Date: July 11, 2022 Subjective no acute interval events clinically ;remains on RA; worried about coordinating family members w/ d/c; no sob per pt; no n/v, no edema; ongoing dribbling urine/baseline Review of Systems Review of Systems: All systems reviewed & are unremarkable except as noted in Subjective Physical Exam Constitutional: well developed (standing up in bathroom doing ADL) and well nourished Eyes: EOM intact bilaterally ENMT: Ears: no external ear abnormality Nose: no external nose abnormality Mouth: + dry oral mucous membranes Neck: no nuchal rigidity Respiratory: normal respiratory effort, + labored breathing (w/ activitiy) and able to speak in complete sentences; no cough Auscultation: + diminished lung sounds (suzan L base) and + rhonchi (L posterior) Cardiovascular: Rate/Rhythm: regular rate and regular rhythm Heart Sounds: + murmur Extremities: no edema Gastrointestinal (Abdomen): Inspection/Auscultation: normal bowel sounds Percussion/Palpation: abdomen soft; abdomen nontender Musculoskeletal: Extremities: strength 5/5 throughout Skin: no rashes, warm and dry Neurologic: olea, no tremor, fluent speech Psychiatric: Orientation: oriented x 3 Speech: normal rate/rhythm/volume of speech Affect: euthymic affect Results & Data ([facility]) Vital Signs (Past 12 Hours) Vital Signs Temp Pulse Pulse Resp BP Pulse Ox Pulse Ox 07/17/22 07:24 36.4 C L 63 18 167/71 H 97 07/17/22 07:23 61 07/17/22 02:57 36.5 C 63 18 134/53 L 97 07/17/22 00:00 97 07/16/22 22:31 68 07/16/22 23:09 36.3 C L 68 18 150/62 H 97 O2 Del Method O2 Del Method O2 Flow Rate 07/17/22 07:24 Room Air 07/17/22 07:23 07/17/22 02:57 Room Air 07/17/22 00:00 Room Air 0 07/16/22 22:31 07/16/22 23:09 Room Air Laboratory Results 07/17/22 06:56 07/17/22 06:56
[2022-07-17] MEDS ORDERED: hydrALAZINE HCL 25 MG TAB PO ONE (10:00)
--- NOTE | 2022-07-17 17:38 | Hospitalist Progress Note ---
Date of Service July 17, 2022 Assessment & Plan (1) Acute respiratory failure with hypoxia: Plan: Acute respiratory failure with hypoxia Multifactorial COVID-19 pneumonia, Acute on chronic diastolic CHF Chest x-raybilateral infiltrates; repeat x-ray shows improvement in pulmonary edema. BNP elevated to 3800 Pro-Ravin 0.06 Continue on dexamethasone 6 mg daily Empirically on ceftriaxone and doxycycline to complete 7-day course. Hypoxia resolved Currently saturating well on room air Volume status improved Appreciate cardiology input (2) Elevated troponin: Plan: H/O CAD S/P CABG in 2007 High sensitivity elevation likely due to demand ischemia EKG shows sinus rhythm with first-degree AV block and LBBB Echo shows dilated left ventricle chamber with low normal LV systolic function. EF of 50 to 55% with grade 1 diastolic dysfunction. Elevated troponin thought to be secondary to COVID-19 infection, hypoxia Appreciate cardiology input IV heparin drip discontinued on 07/12 Continue aspirin, Lipitor, metoprolol (3) NEY (acute kidney injury): Plan: Baseline creatinine on 07/02 was 1.88. likely ATN Renal ultrasoundno hydronephrosis. CK normal Appreciate Nephrology Input Lisinopril on hold Needs follow-up with nephrology upon discharge (4) HTN (hypertension): Plan: Continue amlodipine --increased to 10mg daily Continue metoprolol Held lisinopril due to NEY (5) HLD (hyperlipidemia): Plan: Started on Lipitor (6) BPH (benign prostatic hyperplasia): Plan: On alfuzosin Plan DVT Px: Heparin SQ Code Status full code Admission and Anticipated Discharge Date Admission Date: July 11, 2022 Subjective Patient is seen and examined at bedside States having minimal cough with expectoration Denies any chest pain, dyspnea, dizziness, nausea, abdominal pain Discussed with nephrology today Creatinine level stable Offers no other complaints Review of Systems Review of Systems: All systems reviewed & are unremarkable except as noted in Subjective Physical Exam Physical Exam: Physical Exam: Vitals signs as noted above General Appearance:Moderately built and nourished, no apparent distress Head: normocephalic, Atraumatic Eyes: normal inspection, EOMI Neck: supple, Trachea midline Respiratory/Chest:Decreased breath sounds, CTA, No accessory muscle use Cardiovascular: S1, S2, No murmur Abdomen/GI:Soft, Non tender, Bowel sounds present Extremities/Musculoskeletal:normal inspection, no edema Neurologic/Psych:AAOX3, grossly no focal neurological deficits Skin: normal color, warm Results & Data Results & Data ([facility]) Vital Signs (Past 12 Hours) Vital Signs Temp Pulse Pulse Resp BP Pulse Ox O2 Del Method 07/17/22 15:45 36.3 C L 60 18 142/62 H 98 Room Air 07/17/22 15:32 73 07/17/22 11:33 36.5 C 64 18 146/65 H 97 Room Air 07/17/22 08:15 Room Air 07/17/22 07:24 36.4 C L 63 18 167/71 H 97 Room Air 07/17/22 07:23 61 Laboratory Results Short CBC 07/17/22 Range/Units 06:56 WBC 9.83 (4.8-10.8) K/ul Hgb 9.5 L (14.0-18.0) g/dl Hct 28.0 L (40.1-51.0) % Plt Count 332 (130-400) K/uL BMP 07/17/22 06:56 Sodium 135 L Potassium 4.8 Chloride 109 H Carbon Dioxide 17 L BUN 108 H Creatinine 2.98 H Glucose 132 H Calcium 7.7 L
[2022-07-17] MEDS: cefTRIAXone SODIUM 2,000 MG in DEXTROSE 5% 50 ML IV SCH (21:57)
[2022-07-17] MEDS: hydrALAZINE TAB 50 MG TAB PO SCH (21:59)
[2022-07-17] MEDS: ZOLPIDEM TARTRATE 5 MG TAB PO PRN (23:02)
[2022-07-18] MEDS: HEPARIN SOD 5,000 UNIT/0.5 ML VIAL SQ SCH (06:15)
--- NOTE | 2022-07-18 08:14 | Nephrology Progress Note ---
Date of Service July 18, 2022 Assessment & Plan (1) NEY (acute kidney injury): Plan: -Ischemic/ Toxic ATN 2/2 Covid 19, he has pulmonary infiltrates on chest demi reyes ore likely 2/2 pneumomia than fluid overload. no evidence of obstruction. last outpatient creatinine on 07/02/22 was 1.9 per hospitalist d/w PC and no report this was off baseline. - renal function plateau'd now x 3 days; significant presume metabolic acidosis w/o anion gap ? cause but worsening > ? if diarrhea he's not willing to discuss - Conservative management - Agree with holding Lisinopril. - need better BP control >> amlodipine now upped to 10 mg daily; also on clonidine, bb. on 07/16 started hydralazine 25 mg bid as tolerated > will increase to 50 mg bid 07/17 - no fluid or lasix as his oral intake has improved. -if breathing worsens further, low threshold for XR - Strict I/O >if very close f/u can ensured, he could be d/c home today or tomorrow though he is still very dyspneic w/ activity -would need bmp Friday AM then q Fri/ until renal function improving to be followed by PCP -recommend establishing with local plating engineer -hold lisinopril at d/c until renal function improves -sounds like lower urinary tract sx at baseline - defer to pt/PCP on next urology f/u -needs to see PCP w/in week of hospital d/c for bp check and overall exam Care coordinated w/ Dr Kidd (2) BPH (benign prostatic hyperplasia): Plan: - USS is suggestive of bladder outflow obstruction , UOP has been low( although not sure of its accuracy) - BLadder scan post void, it residual > 200 mls , catheterize; may need urology to place catheter (3) HTN (hypertension): Plan: As above (4) Hypoxia: Plan: -2/ Covid 19 - Agree with no Remsidivir, renally dose ABX. - as Per primary. Admission and Anticipated Discharge Date Admission Date: July 11, 2022 Subjective pt seen on rounds this am at 0930; remains anxious for d/c; cont to deny sob or worse cough/functional status; no chnage in chronic LUTS Review of Systems Review of Systems: All systems reviewed & are unremarkable except as noted in Subjective Physical Exam Constitutional: well developed (sittin g in bed) and well nourished Eyes: EOM intact bilaterally ENMT: Ears: no external ear abnormality Nose: no external nose abnormality Mouth: + dry oral mucous membranes Neck: no nuchal rigidity Respiratory: normal respiratory effort, + labored breathing (w/ activitiy) and able to speak in complete sentences; no cough Auscultation: + diminished lung sounds (suzan L base) Cardiovascular: Rate/Rhythm: regular rate and regular rhythm Heart Sounds: + murmur Extremities: no edema Gastrointestinal (Abdomen): Inspection/Auscultation: normal bowel sounds Percussion/Palpation: abdomen soft; abdomen nontender Musculoskeletal: Extremities: strength 5/5 throughout Skin: no rashes, warm and dry Psychiatric: Orientation: oriented x 3 Speech: normal rate/rhythm/volume of speech Affect: + anxious affect and + tearful affect Results & Data ([facility]) Vital Signs (Past 12 Hours) Vital Signs Temp Pulse Pulse Resp BP BP Pulse Ox 07/18/22 07:29 63 07/18/22 00:00 73 07/18/22 03:04 36.5 C 61 18 135/40 L 97 07/17/22 23:35 36.3 C L 68 18 157/69 H 97 07/17/22 21:00 07/17/22 21:59 73 164/70 H O2 Del Method 07/18/22 07:29 07/18/22 00:00 07/18/22 03:04 Room Air 07/17/22 23:35 Room Air 07/17/22 21:00 Room Air 07/17/22 21:59 Laboratory Results 07/17/22 06:56 07/18/22 07:47
[2022-07-18 08:36] LABS: Calcium 7.7 mg/dl (8.5-10.1); Creatinine Clr Calc Pharmacy 20.4 ml/min; Est GFR (African American) 22.7 ml/min; Est GFR (Non-African American) 19.6 ml/min; Potassium 4.7 mmol/L (3.5-5.1)
[2022-07-18] MEDS: amLODIPine BESYLATE 5 MG TAB PO SCH (09:06)
[2022-07-18] MEDS: cloNIDine HCL 0.1 MG TAB PO SCH (09:06)
[2022-07-18] MEDS: ATORVASTATIN 20 MG TAB PO SCH (09:06)
[2022-07-18] MEDS: ASPIRIN 81 MG ECTAB PO SCH (09:06)
[2022-07-18] MEDS: allopurinoL 100 MG TAB PO SCH (09:06)
[2022-07-18] MEDS: CETIRIZINE HCL 10 MG TABLET PO SCH (09:06)
[2022-07-18] MEDS: ALFUZOSIN HCL 10 MG TAB PO SCH (09:06)
[2022-07-18] MEDS: DOXYCYCLINE HYCLATE 100 MG CAP PO SCH (09:07)
[2022-07-18] MEDS: hydrALAZINE TAB 50 MG TAB PO SCH (09:07)
[2022-07-18] MEDS: dexAMETHasone 1 MG TAB PO SCH (09:07)
[2022-07-18] MEDS: METOPROLOL SUCC 25MG EXT REL TAB PO SCH (09:07)
--- NOTE | 2022-07-18 13:26 | Hospitalist Progress Note ---
Date of Service July 18, 2022 Assessment & Plan (1) Acute respiratory failure with hypoxia: Plan: Acute respiratory failure with hypoxia Multifactorial COVID-19 pneumonia, Acute on chronic diastolic CHF Chest x-raybilateral infiltrates; repeat x-ray shows improvement in pulmonary edema. BNP elevated to 3800 Pro-Ravin 0.06 Continue on dexamethasone 6 mg daily Empirically on ceftriaxone and doxycycline--will complete 7-day course today Hypoxia resolved Currently saturating well on room air Volume status improved Appreciate cardiology input Plan to discharge home today (2) Elevated troponin: Plan: H/O CAD S/P CABG in 2007 High sensitivity elevation likely due to demand ischemia EKG shows sinus rhythm with first-degree AV block and LBBB Echo shows dilated left ventricle chamber with low normal LV systolic function. EF of 50 to 55% with grade 1 diastolic dysfunction. Elevated troponin thought to be secondary to COVID-19 infection, hypoxia Appreciate cardiology input IV heparin drip discontinued on 07/12 Continue aspirin, metoprolol (3) NEY (acute kidney injury): Plan: Baseline creatinine on 07/02 was 1.88. likely ATN Renal ultrasoundno hydronephrosis. CK normal Appreciate Nephrology Input Lisinopril on hold Needs follow-up with nephrology upon discharge Cr: 2.7 today Advised to get repeat BMP on 07/22/22 and follow up as outpatient (4) HTN (hypertension): Plan: Continue amlodipine --increased to 10mg daily Continue metoprolol Held lisinopril due to NEY Started on Hydralazine 50mg BID (5) HLD (hyperlipidemia): Plan: Lipid panel normal (6) BPH (benign prostatic hyperplasia): Plan: On alfuzosin Plan DVT Px: Heparin SQ Code Status full code Admission and Anticipated Discharge Date Admission Date: July 11, 2022 Subjective Patient is seen and examined at bedside No new complaints Denies chest pain, dyspnea, dizziness, nausea, abdominal pain Cough much improved Discussed with nephrology and patient's family over the phone Creatinine level slowly improving Plan to discharge home today Review of Systems Review of Systems: All systems reviewed & are unremarkable except as noted in Subjective Physical Exam Physical Exam: Physical Exam: Vitals signs as noted above General Appearance:Moderately built and nourished, no apparent distress Head: normocephalic, Atraumatic Eyes: normal inspection, EOMI Neck: supple, Trachea midline Respiratory/Chest:Decreased breath sounds, CTA, No accessory muscle use Cardiovascular: S1, S2, No murmur Abdomen/GI:Soft, Non tender, Bowel sounds present Extremities/Musculoskeletal:normal inspection, no edema Neurologic/Psych:AAOX3, grossly no focal neurological deficits Skin: normal color, warm Results & Data Results & Data ([facility]) Vital Signs (Past 12 Hours) Vital Signs Temp Pulse Pulse Resp BP BP Pulse Ox 07/18/22 09:03 36.3 C L 70 18 159/62 H 97 07/18/22 07:29 63 07/18/22 03:04 36.5 C 61 18 135/40 L 97 O2 Del Method 07/18/22 09:03 Room Air 07/18/22 07:29 07/18/22 03:04 Room Air Laboratory Results BMP 07/18/22 07:47 Sodium 134 L Potassium 4.7 Chloride 109 H Carbon Dioxide 17 L BUN 105 H Creatinine 2.76 H Glucose 189 H Calcium 7.7 L
--- NOTE | 2022-07-18 14:21 | Discharge Summary ---
Date of Service July 18, 2022 Admission HPI Per Admitting Provider Patient is a 86-year-old male with past medical history of CAD status post CABG in 2007, hypertension, hyperlipidemia, BPH presented to the ED with complaint of cough for past 2 days. Patient is from [place], [place] and here in the [facility] for camping with his son. He noticed increased bouts of coughing since last 2 days. The cough is nonproductive, associated with pleuritic chest pain. He denies fever or chills. He does acknowledge that he has been feeling weak since past 2 days as well. He also reports increasing shortness of breath for past 3 to 4 days as well. The shortness of breath is evident on any form of activity. He also complains of chest pain which is aggravated with coughing is nonradiating. He has taken COVID vaccination along with the booster; his booster was in August 2021. As per the patient, he had coronary artery bypass surgery in 2007 for coronary artery disease. 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 He said he had " Nuclear test" 6-month back and the results were normal. He also has a history of hypertension for which he is on amlodipine, lisinopril, clonidine and metoprolol. He lives with his and is able to carry out all the daily activities by himself. He denies smoking cigarette, drinking alcohol or using any other illicit drugs. On presentation to the ED, patient was afebrile, hypertensive and required 5 L of oxygen via nasal cannula., patient was found to be COVID-positive. Chest x- ray was remarkable for bilateral infiltrates. He is EKG showed left bundle branch block; no previous EKG in the system to compare it with. His initial troponin was 1000. Patient was given IV dexamethasone 6 mg for COVID 19 infection and he was admitted to the floors. Admission Exam Per Admitting Provider Physical Exam Physical Exam: Constitutional: Alert, oriented x3; in respiratory distress Neck: trachea midline, no thyromegaly normal visual inspection Respiratory: Bilateral crackles up to mid lung henderson Cardiovascular: S1-S2 no murmur appreciated Chest: normal inspection of chest. Scar present Abdomen: Soft, nontender Musculoskeletal: no cyanosis or clubbing, extremities motor strength 5/5 Skin: bilateral 1+ pitting edema present Neurologic: PERRL, EOMI, accommodation nl, no face palsy, no dysarthria CN's II- XI intact bilaterally and moves all extremities Psychiatric: A+Ox3, euthymic affect Lymphatic: no cervical or axillary lymphadenopathy : deferred Principal Diagnosis Acute respiratory failure with hypoxia COVID-19 pneumonia Acute on chronic diastolic CHF Acute kidney injury Discharge Data Allergies Allergy/AdvReac Type Severity Reaction Status Date / Time No Known Allergies Allergy Unverified 07/11/22 16:43 Consultations 07/11/22 14:42 ED Decision to Admit Stat 07/11/22 17:07 Consult Cardiology Routine 07/14/22 07:49 Consult Nephrology Routine Procedures Performed Laboratory Results WBC 9.83 K/ul (4.8-10.8) 07/17/22 06:56 RBC 3.17 M/uL (4.63-6.08) L 07/17/22 06:56 Hgb 9.5 g/dl (14.0-18.0) L 07/17/22 06:56 Hct 28.0 % (40.1-51.0) L 07/17/22 06:56 MCV 88.3 fL (80.0-100.0) 07/17/22 06:56 MCH 30.0 pg (25.0-34.0) 07/17/22 06:56 MCHC 33.9 g/dL (32.0-36.0) 07/17/22 06:56 RDW Std Deviation 47.4 fL (36.4-46.3) H 07/17/22 06:56 RDW Coeff of Ambrose 14.6 % (11.5-14.5) H 07/17/22 06:56 Plt Count 332 K/uL (130-400) 07/17/22 06:56 MPV 11.2 fL (9.4-12.4) 07/17/22 06:56 Immature Gran % (Auto) 1.6 % 07/17/22 06:56 Neut % (Auto) 82.2 % 07/17/22 06:56 Lymph % (Auto) 8.2 % 07/17/22 06:56 Grand % (Auto) 7.8 % 07/17/22 06:56 Eos % (Auto) 0.0 % 07/17/22 06:56 Baso % (Auto) 0.2 % 07/17/22 06:56 Neut # (Auto) 8.07 K/uL (1.4-6.5) H 07/17/22 06:56 Lymph # (Auto) 0.81 K/uL (1.2-3.4) L 07/17/22 06:56 Grand # (Auto) 0.77 K/uL (0.24-0.82) 07/17/22 06:56 Eos # (Auto) 0.00 K/uL (0-0.50) 07/17/22 06:56 Baso # (Auto) 0.02 K/uL (0-0.2) 07/17/22 06:56 Immature Gran # (Auto) 0.16 K/uL (0.00-0.02) H 07/17/22 06:56 PT 12.4 Seconds (9.0-12.0) H 07/11/22 12:55 INR 1.2 (0.9-1.1) H 07/11/22 12:55 APTT 68.3 Seconds (21.0-31.0) H* 07/12/22 11:20 PTT Ratio 2.5 07/12/22 11:20 VBG pH 7.30 (7.36-7.41) L 07/11/22 13:08 VBG pCO2 41 mmHg (38-50) 07/11/22 13:08 VBG pO2 27 mmHg 07/11/22 13:08 VBG HCO3 20 mmol/L 07/11/22 13:08 VBG O2 Saturation < 60.0 % 07/11/22 13:08 VBG Base Excess -5.9 mEq/L 07/11/22 13:08 Sodium 134 mmol/L (136-145) L 07/18/22 07:47 Potassium 4.7 mmol/L (3.5-5.1) 07/18/22 07:47 Chloride 109 mmol/L (98-107) H 07/18/22 07:47 Carbon Dioxide 17 mmol/L (21-32) L 07/18/22 07:47 Anion Gap 8 (3-11) 07/18/22 07:47 BUN 105 mg/dl (6-23) H 07/18/22 07:47 Creatinine 2.76 mg/dl (0.6-1.4) H 07/18/22 07:47 Est Cr Clr Drug Dosing 20.4 ml/min 07/18/22 07:47 Est GFR ( Amer) 22.7 ml/min 07/18/22 07:47 Est GFR (Non-Af Amer) 19.6 ml/min 07/18/22 07:47 BUN/Creatinine Ratio 38.0 (10-20) H 07/18/22 07:47 Glucose 189 mg/dl (70-99(Fasting)) H 07/18/22 07:47 Calcium 7.7 mg/dl (8.5-10.1) L 07/18/22 07:47 Magnesium 1.5 mg/dl (1.7-2.4) L 07/11/22 12:55 Total Bilirubin 0.3 mg/dl (0.2-1.0) 07/16/22 07:44 AST 21 U/L (13-39) 07/16/22 07:44 ALT 21 U/L (7-52) 07/16/22 07:44 Alkaline Phosphatase 58 U/L (34-104) 07/16/22 07:44 Total Creatine Kinase 484 U/L (30-223) H 07/11/22 18:25 Troponin I High Sens 1203.3 pg/ml (0-20) H* 07/12/22 09:32 B-Natriuretic Peptide 3806 pg/ml (0-100) H 07/11/22 15:33 Total Protein 5.4 gm/dl (6.0-8.3) L 07/16/22 07:44 Albumin 3.2 gm/dl (3.4-5.0) L 07/16/22 07:44 Globulin 2.2 gm/dl (2.5-4.0) L 07/16/22 07:44 Albumin/Globulin Ratio 1.5 (0.9-2) 07/16/22 07:44 Triglycerides 48 mg/dl (0-150) 07/12/22 02:27 Cholesterol 114 mg/dl (0-200) 07/12/22 02:27 LDL Cholesterol, Calc 58 mg/dl 07/12/22 02:27 VLDL Cholesterol, Calc 10 mg/dl (0-30) 07/12/22 02:27 HDL Cholesterol 46 mg/dl 07/12/22 02:27 Cholesterol/HDL Ratio 2.5 (0-5) 07/12/22 02:27 Procalcitonin 0.06 ng/ml (0-0.5) 07/11/22 12:55 Urine Color Yellow 07/15/22 13:25 Urine Appearance Clear (Clear) 07/15/22 13:25 Urine pH 5.0 (4.5-7.5) 07/15/22 13:25 Ur Specific [place] 1.014 (1.000-1.030) 07/15/22 13:25 Urine Protein 2+ (Negative) H 07/15/22 13:25 Urine Glucose (UA) Negative (Negative) 07/15/22 13:25 Urine Ketones Negative (Negative) 07/15/22 13:25 Urine Blood Negative (Negative) 07/15/22 13:25 Urine Nitrite Negative (Negative) 07/15/22 13:25 Urine Bilirubin Negative (Negative) 07/15/22 13:25 Urine Urobilinogen Negative (Negative) 07/15/22 13:25 Ur Leukocyte Esterase Trace (Negative) H 07/15/22 13:25 Urine WBC (Auto) 10-30 /hpf (0-5) H 07/15/22 13:25 Urine RBC (Auto) 0-4 /hpf (0-4) 07/15/22 13:25 U Hyaline Cast (Auto) 1-5 /lpf (0-5) 07/15/22 13:25 U Epithel Cells (Auto) 20-30 /lpf (0-5) H 07/15/22 13:25 Urine Bacteria (Auto) 1+ (Negative) H 07/15/22 13:25 Urine Yeast Not Reportable 07/15/22 13:25 Urine Osmolality 359 mOsm/kg (500-800) L 07/11/22 22:38 Urine Sodium 119 mmol/L 07/11/22 22:38 Urine Potassium 24.8 mmol/L 07/11/22 22:38 Urine Chloride 139 mmol/L 07/11/22 22:38 SARS-CoV-2 (PCR) POSITIVE (Negative) A* 07/11/22 12:52 Influenza Type A (PCR) Negative (Neg) 07/11/22 12:52 Influenza Type B (PCR) Negative (Neg) 07/11/22 12:52 RSV (RT-PCR) Negative (Neg) 07/11/22 12:52 Impressions Renal Ultrasound 07/11/22 15:44 ULTRASOUND KIDNEYS AND BLADDER CLINICAL HISTORY: Acute renal insufficiency. COMPARISON STUDY: No priors. TECHNIQUE: Real-time, grayscale, and color flow sonography of the kidneys and bladder is performed. Images are reviewed in the transverse and longitudinal planes. FINDINGS: Kidneys: The kidneys demonstrate mild cortical atrophy. Echotexture is normal. The right kidney measures 11.4 cm in length and the left kidney measures 10.3 cm in length. There is no hydronephrosis. No shadowing renal calculi are identified. Small bilateral renal cysts measure up to 1.5 cm. There is no sonographic evidence of contour deforming renal mass lesion. No perinephric fluid is identified. Bladder: The bladder wall appears thickened/trabeculated suggesting chronic outlet obstruction. Bilateral ureteral jets were seen. IMPRESSION: 1. The kidneys demonstrate mild cortical atrophy and are without hydronephrosis. 2. The appearance of the bladder suggests chronic outlet obstruction. ACT 112: Negative or not required by law. Electronically signed by: Henry Coyne M.D. 07/11/2022 6:23 PM Chest X-Ray 07/12/22 10:37 XR chest 1V portable CLINICAL HISTORY: Follow up on pulmonary edema COMPARISON STUDY: Chest radiograph July 11, 2022. FINDINGS: Median sternotomy wires are noted. Moderate cardiomegaly is present. There are small bilateral pleural effusions. No pneumothorax is present. Interstitial pulmonary edema has slightly improved. Asymmetric right lower lung airspace opacity persists. IMPRESSION: 1. Slight improvement in pulmonary edema. 2. Small bilateral pleural effusions with bibasilar opacities, greater on the ri ght. Radiographic follow-up to ensure resolution is recommended. ACT 112: Negative or not required by law. Electronically signed by: Clinton Cuba M.D. 07/12/2022 1:29 PM Ordered Studies 07/11/22 15:44 US Renal Bladder [US renal/blad retro comp] Routine Hospital Course (1) Acute respiratory failure with hypoxia: Acute respiratory failure with hypoxia Multifactorial COVID-19 pneumonia, Acute on chronic diastolic CHF Chest x-raybilateral infiltrates; repeat x-ray shows improvement in pulmonary edema. BNP elevated to 3800 Pro-Ravin 0.06 Continue on dexamethasone 6 mg daily Empirically on ceftriaxone and doxycycline--will complete 7-day course today Hypoxia resolved Currently saturating well on room air Volume status improved Appreciate cardiology input Plan to discharge home today (2) Elevated troponin: H/O CAD S/P CABG in 2007 High sensitivity elevation likely due to demand ischemia EKG shows sinus rhythm with first-degree AV block and LBBB Echo shows dilated left ventricle chamber with low normal LV systolic function. EF of 50 to 55% with grade 1 diastolic dysfunction. Elevated troponin thought to be secondary to COVID-19 infection, hypoxia Appreciate cardiology input IV heparin drip discontinued on 07/12 Continue aspirin, metoprolol (3) NEY (acute kidney injury): Baseline creatinine on 07/02 was 1.88. likely ATN Renal ultrasoundno hydronephrosis. CK normal Appreciate Nephrology Input Lisinopril on hold Needs follow-up with nephrology upon discharge Cr: 2.7 today Advised to get repeat BMP on 07/22/22 and follow up as outpatient (4) HTN (hypertension): Continue amlodipine --increased to 10mg daily Continue metoprolol Held lisinopril due to NEY Started on Hydralazine 50mg BID (5) HLD (hyperlipidemia): Lipid panel normal (6) BPH (benign prostatic hyperplasia): On alfuzosin Plan DVT Px: Heparin SQ Code Status full code Total Time Total Time Spent Total Time Spent (In Minutes): 47 minutes Discharge Plan Discharge Items Patient Disposition: Home - Self-Care Reason For Visit: COVID, NSTEMI Discharge Diagnosis: Acute respiratory failure with hypoxia COVID-19 pneumonia Acute on chronic diastolic CHF Acute kidney injury Activity: Per Instructions section Exercise/Sports: Gradually increase as tolerated Non-emergency contact: Primary Care Provider, [employer] Rep[employer]r and Market Manager Call non-emergency contact if: you have any medication questions, your symptoms worsen, your pain is concerning for you and you have a fever Follow-up/Referrals: Torrey Dumas DO [Primary Care Provider] - Diet: Regular Addtl Attending Provider Instructions: Follow-up with your primary care physician in 1 week as advised Follow-up with your potline monitor and [employer] Repairer in 2-3 weeks. --Get Blood Test (Basic Metabolic Panel) on Friday (07/22/22) and (07/25/22) and follow up with your family physician for further instructions. Medication changes: ---Your Lisinopril is discontinued due to acute kidney injury. Follow up with your physician for further instructions. --Your amlodipine dose is increased to 10 mg daily Start taking hydralazine 50 mg twice a day for better control of blood pressure. Seek immediate medical attention if your symptoms reoccur or worsen Please take all medications as instructed on discharge list below. Please call if you have any questions or problems. You can reach a [facility] hospitalist on duty at [facility] 24 hours a day by calling [phone] Call your Primary Care doctor if any of the following symptoms or problems start or get worse: * Shortness of breath or difficulty breathing * Wake up at night short of breath * Chest pain * Cough * Swelling of your hands, feet, or legs * More fatigued or tired with your normal activity * Palpitations - sudden fast heart beats WEIGHT * Weigh yourself every morning after using the bathroom. * Use the same scale. * Wear the same amount of clothing. * Write your weight down on a chart. * Call your Primary Care doctor if you gain more than 2-3 pounds in 1-2 days. MEDICATIONS * Use this discharge instruction sheet for medication instructions. * Take your medications at the time your doctor ordered. * Do not skip a dose of your medicines. * If you miss a dose of medicine, take it as soon as possible, but DO NOT DOUBLE A DOSE. * Read your medicine information when you get home. * Know all of the side effects of your medicine. If in doubt, ask your pharmacist * Call your Primary Care doctor's office if you have any side effects. * Be sure all of your doctors know what medicine and herbs you take (including cold, flu, and herbal medicine). Take the following with you to your follow-up doctor appointments: * Weight Chart * Medication List * List of questions Do not drink excessive alcohol, beer or wine. Pending Studies at Discharge: No Stand-Alone Forms: [facility], Smoking Cessation Medications and DC Order Prescriptions: New hydralazine 50 mg Tablet 50 mg PO BID Qty: 60 0RF Continued clonidine HCl 0.1 mg tablet 0.1 mg PO BID cetirizine 10 mg tablet 10 mg PO DAILY metoprolol succinate 50 mg tablet extended release 24 hr 25 mg PO DAILY allopurinol 100 mg tablet 100 mg PO DAILY meclizine 25 mg tablet 25 mg PO TID PRN (Reason: Dizziness) nitroglycerin 0.4 mg tablet, sublingual 0.4 mg sublingual Q5W PRN (Reason: Chest Pain) zolpidem 10 mg tablet 10 mg PO HS ezetimibe 10 mg tablet 10 mg PO DAILY alfuzosin 10 mg tablet extended release 24 hr 10 mg PO DAILY aspirin 81 mg Tablet 81 mg PO DAILY Changed amlodipine 5 mg tablet 10 mg PO DAILY Qty: 60 0RF Discontinued lisinopril 40 mg tablet 40 mg PO DAILY Discharge Orders: Discharge Order (Routine); Ordered 07/18/22 Ordered By: Maged Kidd Admission Data Admit Date/Time: 07/11/22 15:44 Attending Provider: Maged Kidd Admit Provider: Wilder Pressley Primary Care Provider: Torrey Dumas Other Providers: Fam Nath ; Ketan Perez ; Viola Douglas
== END 2022-07-18 17:55 | disposition home or self-care (01) | DRG 177 ==
LOC: ED 12:19 → 2S 15:44 → SUATTDRO 15:44 → 2S 16:45 → 2E 07-12 22:27 → 2N 07-13 19:02